=== PATIENT | female | born 1945 | race Two or more races ===

== ENCOUNTER → 2022-05-04 | Outpatient (CLI) | payer OTHER ==
[2022-05-04 10:32] LABS: Basophils # (auto) 0 10 ^3/uL (0-0.2); Basophils % (auto) 0.8 % (0.0-2.0); Eosinophils # (auto) 0.1 10 ^3/uL (0-0.8); Eosinophils % (auto) 2.5 % (0.0-7.0); Hematocrit 40.7 % (36.0-46.0); Lymphocytes # (auto) 1.2 10 ^3/uL (0.4-5.4); Lymphocytes % (auto) 23.3 % (10.0-50.0); Mean Corpuscular Hemoglobin 29.2 pg (28.0-32.0); Mean Corpuscular Hgb Conc. 34.3 g/dL (32.0-36.0); Mean Corpuscular Volume 85.1 fL (80.0-100.0); Monocytes # (auto) 0.4 10 ^3/uL (0-1.3); Monocytes % (auto) 8.6 % (0.0-12.0); Neutrophils # (auto) 3.3 10 ^3/uL (1.6-8.6); Neutrophils % (auto) 64.8 % (37.0-80.0); Nucleated Red Blood Cells % 0.1 %; Red Blood Cells 4.79 10^6/uL (4.0-5.20); Red Cell Distribution Width 13.1 % (11.8-14.3); White Blood Cell 5.2 10^3/uL (4.4-10.8)
[2022-05-04 11:18] LABS: Albumin 3.6 g/dL (3.4-5.0); BUN/Creatinine Ratio 23.4; Calcium 9.3 mg/dL (8.5-10.1); Potassium 4.4 mmol/L (3.5-5.1); Total Protein 6.6 g/dL (6.4-8.2)
[2022-05-04 11:23] LABS: Bilirubin, Total 0.4 mg/dL (0.2-1.0)
== END | disposition home or self-care (01) ==
LOC: LAB 10:08
PROVIDERS: ATTEND Student in an Organized Health Care Education/Training Program
DX: E78.5 Hyperlipidemia, unspecified (principal); E03.8 Other specified hypothyroidism; R03.0 Elevated blood-pressure reading, without diagnosis of hypertension
CPT/HCPCS: 36415; 80053; 80061; 84439; 84443; 85025

== ENCOUNTER → 2023-04-06 | Outpatient (CLI) | payer OTHER ==
[2023-04-06 12:31] LABS: Calcium 9.5 mg/dL (8.5-10.1); Chloride 109 mmol/L (98-107); Sodium 143 mmol/L (136-145)
[2023-04-06 12:32] LABS: Anion Gap 4 (5-15); Carbon Dioxide 30 mmol/L (20-30)
[2023-04-06 12:37] LABS: BUN/Creatinine Ratio 14.9 (10.0-20.0); Blood Urea Nitrogen 17 mg/dL (9-23); Glucose 124 mg/dL (74-106)
== END | disposition home or self-care (01) ==
LOC: LAB 11:43
PROVIDERS: ATTEND Student in an Organized Health Care Education/Training Program
DX: N18.31 Chronic kidney disease, stage 3a (principal)
CPT/HCPCS: 36415; 80048

== ENCOUNTER 2024-02-18 18:55 | Inpatient (IN) | payer OTHER ==
[~2024-02-18] VITALS: Ht 157.5 cm; Wt 71.3 kg
--- NOTE | 2024-02-18 19:52 | DVH ---
CHEST RADIOGRAPH Indication: sob Technique: Single frontal view of the chest was obtained Comparison: None FINDINGS: Lines and Tubes: None Lungs: Clear Pleura: No effusion. No pneumothorax. Cardiomediastinal contours: Unremarkable Bones: Unremarkable IMPRESSION: 1. Clear lungs.
--- NOTE | 2024-02-18 20:11 | ED.PDOC ---
SOB-HPI HPI Comments 78 year old female with a history of MS presents to the ED with chief complaint of SOB. Patient reports that she has been ill with a cough, congestion, and generalized weakness for the past 2 days, however, she has now been experiencing SOB, dizziness, fever, sore throat, and N/V/D. Patient's son relays that she is unable to walk herself to the bathroom when normally she can and she is unable to eat or drink due to her sore throat. Son states there are sick contacts at home with similar symptoms. Patient denies any chest pain, headache, chills, dysuria, hematemesis, or melena. Time Seen by MD: 19:51 Reviewed notes: Nurses Notes, Medications, Allergies Information Source: Patient, Relative (Son) Mode of Arrival: Wheelchair Severity: Moderate Timing: Days Duration: Since onset Context: At Rest PE Risk Factors: None History of: None Prehospital treatment: None Modifying Factors: Nothing Associated Signs and Symptoms: Fever, Cough, Sore Throat If cough with SOB: Non-Productive Past Medical History PAST MEDICAL HISTORY: Thyroid, TIA Past Medical History (Other): MS Surgical History: Denies all surgeries BINGO FLOATER History: Denies all BINGO FLOATER Hx Family History Family History: Reviewed,noncontributory to illness Social History Smoker: Non-Smoker Alcohol: Denies ETOH Use Drugs: Denies Drug Use Lives In: Home Constitutional: reports: fever, weakness; denies: chills, diaphoresis, fatigue, malaise, sweats, others EENTM: reports: nose congestion, throat pain; denies: blurred vision, double vision, ear bleeding, ear discharge, ear drainage, ear pain, ear ringing, eye pain, eye redness, hearing loss, mouth pain, mouth swelling, nasal discharge, nose bleeding, nose pain, photophobia, tearing, throat swelling, voice changes, others Respiratory: reports: cough, shortness of breath; denies: hemoptysis, orthopnea, SOB at rest, SOB with excertion, stridor, wheezing, others Cardiovascular: denies: chest pain, dizzy spells, diaphoresis, Dyspnea on exertion, edema, irregular heart beat, left arm pain, lightheadedness, pal pitations, PND, syncope, others Gastrointestinal: reports: diarrhea, nausea, vomiting; denies: abdomen distended, abdominal pain, blood streaked bowels, constipated, dysphagia, difficulty swallowing, hematemesis, melena, poor appetite, poor fluid intake, rectal bleeding, rectal pain, others Genitourinary: denies: abnormal vagina bleeding, burning, dyspareunia, dysuria, flank pain, frequency, hematuria, incontinence, pain, , vagina discharge, urgency, others Neurological: reports: dizziness; denies: fainting, headache, left sided numbness, left sided weakness, numbness, paresthesia, pre-existing deficit, right sided numbness, right sided weakness, seizure, speech problems, tingling, tremors, weakness, others Musculoskeletal: denies: back pain, gout, joint pain, joint swelling, muscle pain, muscle stiffness, neck pain, others Integumetry: denies: bruises, change in color, change in hair/nails, dryness, laceration, lesions, lumps, rash, wounds, others Allergic/Immunocompromised: denies: Difficulty Healing, Frequent Infections, Hives, Itching, others Hematologic/Lymphatic: denies: anemia, blood clots, easy bleeding, easy bruising, swollen glands, others Endocrine: denies: excessive hunger, excessive sweating, excessive thirst, excessive urination, flushing, intolerance to cold, intolerance to heat, unexplained weight gain, unexplained weight loss, others Psychiatric: denies: anxiety, bipolar disorder, depression, hopeless, panic disorder, schizophrenia, sleepless, suicidal, others All Other Systems: Reviewed and Negative Physical Exam General Appearance: Mild Distress, Other (Ill-appearing) HEENT: Other (Dry mucous membranes, no pharyngeal erythema, edema, exudate or uvular deviation. Pupils symmetric.) Neck: Full Range of Motion, Normal Inspection Respiratory: Lungs Clear, No Accessory Muscle Use, No Respiratory Distress, Normal Breath Sounds Cardiovascular: No Edema, No JVD, Regular Rate/Rhythm Breast Exam: Deferred Gastrointestinal: Non Tender, Soft Genitalia: Deferred Pelvic: Deferred Rectal: Deferred Extremities: Normal inspection, Normal range of motion, Non-tender, No pedal edema Neurologic: Alert (Oriented x4), Normal Affect, Normal Mood, No Sensory Deficits, Other (Moves all extremities. Unable to stand without assistance.) Cerebellar Function: NOT DONE Reflexes: NOT DONE Skin: Dry, Normal Color, Warm Lymphatic: NOT DONE Was a procedure done? Was a procedure done?: No Differential Dx Differential Diagnosis: Asthma, Bronchitis, CHF, COPD, Dysrhythmia, Hyponatremia, Myocardial infarction, Pneumonia, Pulmonary Embolism, Respiratory Distress, URI Comments Electrolyte imbalance, hypovolemia, renal failure, MS exacerbation, among others X-Ray, Labs, Meds, VS Vital Signs Date Time Temp Pulse Resp B/P (MAP) Pulse Ox O2 Delivery O2 Flow Rate FiO2 02/18/24 20:38 102.0 02/18/24 20:06 102.0 133 18 122/41 (68) 94 Lab Test 02/18/24 22:03 02/18/24 21:00 02/18/24 20:53 Range/Units Troponin I High Sensitivity 10 10 </=34 ng/L Influenza Type A Antigen Negative Negative Influenza Type B Antigen Negative Negative SARS-CoV-2 Antigen (Rapid) Negative NEGATIVE White Blood Count 14.1 H 4.4-10.8 10^3/uL Red Blood Count 5.00 4.0-5.20 10^6/uL Hemoglobin 14.5 12.2-16.2 g/dL Hematocrit 43.8 36.0-46.0 % Mean Corpuscular Volume 87.6 80.0-100.0 fL Mean Corpuscular Hemoglobin 29.1 28.0-32.0 pg Mean Corpuscular Hemoglobin Concent 33.2 32.0-36.0 g/dL Red Cell Distribution Width 14.7 H 11.8-14.3 % Platelet Count 221 140-450 10^3/uL Mean Platelet Volume 8.1 6.9-10.8 fL Neutrophils (%) (Auto) 94.8 H 37.0-80.0 % Lymphocytes (%) (Auto) 1.1 L 10.0-50.0 % Monocytes (%) (Auto) 3.6 0.0-12.0 % Eosinophils (%) (Auto) 0.1 0.0-7.0 % Basophils (%) (Auto) 0.4 0.0-2.0 % Neutrophils # (Auto) 13.4 H 1.6-8.6 10 ^3/uL Lymphocytes # (Auto) 0.2 L 0.4-5.4 10 ^3/uL Monocytes # (Auto) 0.5 0-1.3 10 ^3/uL Eosinophils # (Auto) 0 0-0.8 10 ^3/uL Basophils # (Auto) 0.1 0-0.2 10 ^3/uL Nucleated Red Blood Cells 0.1 % Sodium Level 138 136-145 mmol/L Potassium Level 4.7 3.5-5.1 mmol/L Chloride Level 103 98-107 mmol/L Carbon Dioxide Level 25 20-31 mmol/L Anion Gap 10 5-15 Blood Urea Nitrogen 32 H 9-23 mg/dL Creatinine 1.89 H 0.550-1.02 mg/dL Glomerular Filtration Rate Calc 27 >90 mL/min BUN/Creatinine Ratio 16.9 10.0-20.0 Serum Glucose 164 H 74-106 mg/dL Lactic Acid Level 3.0 *H 0.4-2.0 mmol/L Calcium Level 10.4 8.7-10.4 mg/dL B-Type Natriuretic Peptide 44.78 0-100 pg/mL Thyroid Stimulating Hormone (TSH) 1.32 0.55-4.78 uIU/mL Current Medications Medications (Trade) Dose Ordered Sig/Adeel Route Start Time Stop Time Status Last Admin Acetaminophen (Tylenol Tablet) 650 mg ONCE ONCE PO 02/18/24 20:45 02/18/24 20:46 DC 02/18/24 20:38 Chest XR: FINDINGS: Lines and Tubes: None Lungs: Clear Pleura: No effusion. No pneumothorax. Cardiomediastinal contours: Unremarkable Bones: Unremarkable IMPRESSION: 1. Clear lungs. X-Ray, Labs, Meds, VS Comment 78-year-old female with a history of MS, thyroid disease and TIAs complaining of cough, shortness of breath, sore throat, nausea, vomiting and diarrhea, associated with generalized weakness Vitals remarkable for temperature of 102, heart rate 133, BP 122/41, oxygen saturation 94% on room air Exam remarkable for inability to stand without assistance. Patient is generally ill-appearing. Rhythm strip independently interpreted by me: Sinus tach, rate 128, no ectopy. Chest x-ray: Clear lungs CBC remarkable for WBC 14, differential shows left shift. Metabolic panel shows BUN 32, creatinine 1.89. Lactate 3. Patient treated with the following in the ED: 1 L 0.9 normal saline IV bolus, morphine 2 mg IV, Zofran 4 mg IV, Tylenol 650 mg p.o. On re-evaluation, patient no longer febrile, heart rate improving, other vitals stable. Plan is to admit the patient for IV hydration, lactate trend and neurology evaluation. Images Reviewed?: Images reviewed and evaluated by me Time of 1ST Reevaluation: 20:51 Reevaluation 1ST: Unchanged Patient Education/Counseling: Diagnosis, Treatment Family Education/Counseling: No Family Present Departure 1 Departure Time of Disposition: 21:36 Impression: Primary Impression: Exacerbation of multiple sclerosis Additional Impressions: Febrile illness, acute Acute kidney injury Elevated lactic acid level Disposition: ADMITTED INPATIENT Admit to: [facility] Condition: Guarded Critical Care Note Critical Care Time?: No Stability Stability form required: No Heart Score Heart Score: Heart Score Response (Comments) Value History N/A 0 EKG N/A 0 Age N/A 0 Risk Factors N/A 0 Troponin N/A 0 Total 0 I personally scribed for JOSE BAKER MD ([email or web address]) on 02/18/24 at 20:11. Electronically submitted by Yeyo Barlow ([email or web address]). I personally scribed for JOSE BAKER MD ([email or web address]) on 02/18/24 at 20:34. Electronically submitted by Yeyo Barlow ([email or web address]). JOSE BAKER MD Feb 18, 2024 20:11
[2024-02-18] MEDS: ACETAMINOPHEN 325 MG TAB PO ONE (20:38)
[2024-02-18 21:14] LABS: Basophils # (auto) 0.1 10 ^3/uL (0-0.2); Basophils % (auto) 0.4 % (0.0-2.0); Eosinophils # (auto) 0 10 ^3/uL (0-0.8); Eosinophils % (auto) 0.1 % (0.0-7.0); Hematocrit 43.8 % (36.0-46.0); Hemoglobin 14.5 g/dL (12.2-16.2); Lymphocytes # (auto) 0.2 10 ^3/uL (0.4-5.4); Lymphocytes % (auto) 1.1 % (10.0-50.0); Mean Corpuscular Hemoglobin 29.1 pg (28.0-32.0); Mean Corpuscular Hgb Conc. 33.2 g/dL (32.0-36.0); Mean Corpuscular Volume 87.6 fL (80.0-100.0); Monocytes # (auto) 0.5 10 ^3/uL (0-1.3); Monocytes % (auto) 3.6 % (0.0-12.0); Neutrophils # (auto) 13.4 10 ^3/uL (1.6-8.6); Neutrophils % (auto) 94.8 % (37.0-80.0); Nucleated Red Blood Cells % 0.1 %; Platelet Count (auto) 221 10^3/uL (140-450); Red Cell Distribution Width 14.7 % (11.8-14.3); White Blood Cell 14.1 10^3/uL (4.4-10.8)
[2024-02-18 21:39] LABS: Chloride 103 mmol/L (98-107); Potassium 4.7 mmol/L (3.5-5.1); Sodium 138 mmol/L (136-145)
[2024-02-18 21:40] LABS: Anion Gap 10 (5-15); Calcium 10.4 mg/dL (8.7-10.4); Carbon Dioxide 25 mmol/L (20-31)
[2024-02-18 21:45] LABS: BUN/Creatinine Ratio 16.9 (10.0-20.0)
[2024-02-18] MEDS ORDERED: ONDANSETRON HCL 4 MG/2 ML VIAL IV PRN (21:45)
[2024-02-18] MEDS ORDERED: DOCUSATE SOD 100 MG CAP PO PRN (21:45)
[2024-02-18] MEDS ORDERED: IPRATROPIUM BROM 0.5 MG/2.5ML INH SOL NEB PRN (21:45)
[2024-02-18] MEDS ORDERED: ALBUTEROL SULF 2.5 MG/0.5ML(0.5%) NEB SOLN NEB PRN (21:45)
[2024-02-18] MEDS ORDERED: IBUPROFEN 600 MG TAB PO PRN (21:45)
[2024-02-18 21:47] LABS: Blood Urea Nitrogen 32 mg/dL (9-23); Glucose 164 mg/dL (74-106)
[2024-02-18 22:04] LABS: COVID19 ANTIGEN SOFIA FIA NEGATIVE (NEGATIVE)
[2024-02-18 22:05] LABS: Rapid Influenza A Negative (Negative); Rapid Influenza B Negative (Negative)
[2024-02-18] MEDS ORDERED: MORPHINE SULFATE INJ 2 MG/ml SYRG IV PRN (22:15)
[2024-02-18] MEDS ORDERED: NITROGLYCERIN 0.4 MG SL TAB SL PRN (22:15)
--- NOTE | 2024-02-18 22:22 | DVHHP2 ---
History of Present Illness Reason for Visit: Exacerbation of multiple sclerosis History of Present Illness Patient is a 78-year-old female with past medical history of prediabetes, thyroid disease, TIA, and multiple sclerosis who presented to [facility] ED with complaint of shortness of breaths. Patient reports symptoms progressively get worse with cough, congestion, generalized weakness, dizziness fever, sore throat nausea, getting worse today that prompted this visit. Patient was seen and evaluated in the ED, laboratory data shows WBC 14.1, platelets 221, sodium 138, potassium 4.7, BUN 32, creatinine 1.89, GFR 27, glucose 164 lactic acid 3.0, BNP 44.78, blood pressure 122/41, rate 133 trending down to 110, temperature 102.0 F, O2 saturation 94% oxygen. Patient was started on IV antibiotic regimen vancomycin per dose, please see medication section in the computer. My assessment family member at bedside, patient denied chest pain, no headache, no dizziness, no diaphoresis, no abdominal pain, no diarrhea, nausea or vomiting at this moment, no chills. Patient was admitted for further evaluation and medical management. Past Medical History Thyroid, TIA, multiple sclerosis, prediabetes. Past Surgical History Denies all surgeries Family History Reviewed, noncontributory to the management of this case. Past Social History The patient lives at home, denies smoking, alcohol or illicit drugs abuse. Review of Systems Constitutional: Yes: Fever, Weakness; No: Chills, Sweats, Malaise, Other Eyes: No: Pain, Vision change, Conjunctivae inflammation, Eyelid inflammation, Other, Redness ENT: Nose congestion; No: Ear pain, Ear discharge, Nose pain, Nose discharge, Mouth pain, Mouth swelling, Throat pain, Throat swelling, Other Respiratory: Cough, Shortness of breath; No: Dry, SOB with excertion, Wheezing, Hemoptysis, Pleuritic Pain, Sputum, Wheezing, Other Cardiovascular: No: Chest Pain, Palpitations, Orthopnea, Paroxysmal Noc. Dyspnea, Edema, Lt Headedness, Other Gastrointestinal: No: Nausea, Vomiting, Abdominal Pain, Diarrhea, Constipation, Melena, Hematochezia, Other Genitourinary: No Dysuria, No Frequency, No Incontinence, No Hematuria, No Retention, No Other Musculoskeletal: No: other, neck pain, shoulder pain, arm pain, back pain, hand pain, leg pain, foot pain Skin: No: Rash, Lesions, Jaundice, Bruising, Other Neurological: Other (Dizziness); No: Weakness, Numbness, Incoordination, Change in speech, Confusion, Seizures Allergies: Coded Allergies: NO KNOWN ALLERGIES (Unverified , 02/18/24) Medications Current Medications Medications Dose Ordered Sig/Adeel Route Start Time Stop Time Status Last Admin Dose Admin Albuterol 2.5 mg Q4HPRN PRN NEB 02/18/24 21:45 Ipratropium [place] 0.5 mg Q4HPRN PRN NEB 02/18/24 21:45 Levothyroxine Sodium 50 mcg QAM@0600 PO 02/19/24 06:00 Ibuprofen 400 mg Q6HP PRN PO 02/18/24 21:45 Sodium Chloride 1,000 ml @ 60 mls/hr [id number] IV 02/18/24 21:45 Acetaminophen/ Hydrocodone Bitart 1 tab Q4HP PRN PO 02/18/24 21:45 Ondansetron HCl 4 mg Q4HP PRN IV 02/18/24 21:45 Docusate Sodium 100 mg BIDPRN PRN PO 02/18/24 21:45 Morphine Sulfate 2 mg Q4HPRN PRN IV 02/18/24 21:45 Exam Vital Signs Vital Signs Date Time Temp Pulse Resp B/P (MAP) Pulse Ox O2 Delivery O2 Flow Rate FiO2 02/18/24 20:38 102.0 02/18/24 20:06 133 18 122/41 (68) 94 General Appearance: Alert, Oriented X3, Cooperative, No acute distress HEENT: Atraumatic, PERRLA, EOMI, Mucous membr. moist/pink Respiratory: Clear to auscultation, Normal air movement Cardiovascular: Regular rate, Normal S1, Normal S2, No murmurs Abdominal: Normal bowel sounds, Soft, No tenderness, No hepatospenomegaly, No masses Extremities: No clubbing, No cyanosis, No edema, Normal pulses, No tenderness/swelling Skin: No breakdown, No significant lesion Neuro: Normal speech, Normal tone, Sensation intact, Cranial nerves 3-12 NL, Reflexes 2+, Other (Generalized weakness) Psych/Mental Status: Mental status NL, Mood NL Labs/Xrays Labs Test 02/18/24 21:00 02/18/24 20:53 Range/Units Influenza Type A Antigen Negative Negative Influenza Type B Antigen Negative Negative SARS-CoV-2 Antigen (Rapid) Negative NEGATIVE White Blood Count 14.1 H 4.4-10.8 10^3/uL Red Blood Count 5.00 4.0-5.20 10^6/uL Hemoglobin 14.5 12.2-16.2 g/dL Hematocrit 43.8 36.0-46.0 % Mean Corpuscular Volume 87.6 80.0-100.0 fL Mean Corpuscular Hemoglobin 29.1 28.0-32.0 pg Mean Corpuscular Hemoglobin Concent 33.2 32.0-36.0 g/dL Red Cell Distribution Width 14.7 H 11.8-14.3 % Platelet Count 221 140-450 10^3/uL Mean Platelet Volume 8.1 6.9-10.8 fL Neutrophils (%) (Auto) 94.8 H 37.0-80.0 % Lymphocytes (%) (Auto) 1.1 L 10.0-50.0 % Monocytes (%) (Auto) 3.6 0.0-12.0 % Eosinophils (%) (Auto) 0.1 0.0-7.0 % Basophils (%) (Auto) 0.4 0.0-2.0 % Neutrophils # (Auto) 13.4 H 1.6-8.6 10 ^3/uL Lymphocytes # (Auto) 0.2 L 0.4-5.4 10 ^3/uL Monocytes # (Auto) 0.5 0-1.3 10 ^3/uL Eosinophils # (Auto) 0 0-0.8 10 ^3/uL Basophils # (Auto) 0.1 0-0.2 10 ^3/uL Nucleated Red Blood Cells 0.1 % Sodium Level 138 136-145 mmol/L Potassium Level 4.7 3.5-5.1 mmol/L Chloride Level 103 98-107 mmol/L Carbon Dioxide Level 25 20-31 mmol/L Anion Gap 10 5-15 Blood Urea Nitrogen 32 H 9-23 mg/dL Creatinine 1.89 H 0.550-1.02 mg/dL Glomerular Filtration Rate Calc 27 >90 mL/min BUN/Creatinine Ratio 16.9 10.0-20.0 Serum Glucose 164 H 74-106 mg/dL Lactic Acid Level 3.0 *H 0.4-2.0 mmol/L Calcium Level 10.4 8.7-10.4 mg/dL Troponin I High Sensitivity 10 </=34 ng/L B-Type Natriuretic Peptide 44.78 0-100 pg/mL PATIENT: MADONNA WARNER ACCT: [id number] UNIT: [id number] : 1945 LOC: ER ROOM / BED: / AGE / SEX: 78 / F ADM STATUS: REG ER SERVICE 10 ORDERING PHYSICIAN: JOSE BAKER MD PROCEDURE(s): CXRP - CHEST PORTABLE REASON: sob ORDER NUMBER(s): [id number], ACCESSION NUMBER(s): [id number] CHEST RADIOGRAPH Indication: sob Technique: Single frontal view of the chest was obtained Comparison: None FINDINGS: Lines and Tubes: None Lungs: Clear Pleura: No effusion. No pneumothorax. Cardiomediastinal contours: Unremarkable Bones: Unremarkable IMPRESSION: 1. Clear lungs. Assessment/Plan Assessment/Plan Exacerbation of multiple sclerosis Sepsis, unspecified organisms Acute on chronic renal failure Acute respiratory distress Plan 1. Admit to telemetry unit 2. Breathing treatment 3. Pain control management 4. IV antibiotic management 5. Management of fluids and electrolytes 6. Consultation for hospitalist 7. Diagnostic test chest x-ray 8. DVT prophylaxis-on SCDs 9. Repeat labs CBC, CMP in a.m. 10. Home medication reviewed and reconciled 11. Continue with current medical management 12. Treatment plan discussed with patient and RN. Patient verbalized understanding. Plan discussed with: Patient, Other (RN) My Orders Orders - BARRY WISDOM DNP Procedure Category Date Status Time Albuterol Medneb PHA 02/18/24 In Process (Ventolin Medneb) 21:45 Ipratropium Medneb PHA 02/18/24 In Process (Atrovent Medneb) 21:45 Levothyroxine Tablet PHA 02/19/24 In Process (Synthroid Tablet) 06:00 Ibuprofen Tablet PHA 02/18/24 In Process (Motrin Tablet) 21:45 Allergies CAROLYN 02/18/24 In Process 21:45 Code Status CODE 02/18/24 Transmitted 21:45 Sodium Chloride 0.9% PHA 02/18/24 In Process 21:45 Oxygen Per Hour RT 02/18/24 Transmitted 21:45 Hydrocodone-Acet PHA 02/18/24 In Process 5/325mg Tab ([place] 21:45 Ondansetron Hcl PHA 02/18/24 In Process (Zofran) 21:45 Docusate Sodium PHA 02/18/24 In Process Capsule (Colace 21:45 Complete Blood Count LAB 02/19/24 Verified 04:00 Comprehensive LAB 02/19/24 Verified Metabolic Panel 04:00 Cardiac DIET 02/19/24 Transmitted Diet-2gna,Lofat,Lochol Breakfast Condition: Serious CAROLYN 02/18/24 In Process 21:45 Bedrest With Bathroom CAROLYN 02/18/24 In Process Privileg 21:45 Morphine Sulfate PHA 02/18/24 In Process Injection 21:45 Sequential CAROLYN 02/18/24 In Process Compression Device Thyroid Stimulating LAB 02/18/24 In Process Hormone 21:49 Problem List: (1) Exacerbation of multiple sclerosis (2) Acute respiratory distress (3) Acute on chronic renal failure (4) Sepsis, unspecified organism Date of Service: Feb 18, 2024 Billing Provider: BARRY WISDOM DNP Common Visit Codes: [id number] INP/OBS CARE (HIGH) BARRY WISDOM DNP Feb 18, 2024 22:22
[2024-02-18 22:30] VITALS: BP 122/41; PULSE 132; RESP 18; TEMP 102; O2SAT 94
[2024-02-18] MEDS ORDERED: DEXTROSE (50%) 50ML SYRG IV PRN (22:30)
[2024-02-18] MEDS ORDERED: VANCOMYCIN PER PHARMACY 0 MG IV SCH (23:00)
[2024-02-19] VITALS (11 sets, daily range): BP systolic 88–123; BP diastolic 37–83; PULSE 46–133; RESP 16–21; TEMP 97.6–99.5; O2SAT 89–98
[2024-02-19 05:45] LABS: Hematocrit 39.7 % (36.0-46.0); Hemoglobin 13.3 g/dL (12.2-16.2); Mean Corpuscular Hemoglobin 29.2 pg (28.0-32.0); Mean Corpuscular Hgb Conc. 33.5 g/dL (32.0-36.0); Mean Corpuscular Volume 86.9 fL (80.0-100.0); Platelet Count (auto) 218 10^3/uL (140-450); Red Blood Cells 4.57 10^6/uL (4.0-5.20); Red Cell Distribution Width 14.2 % (11.8-14.3); White Blood Cell 17.3 10^3/uL (4.4-10.8)
[2024-02-19 06:07] LABS: Basophils % (manual) 0 (0.0-2.0); Blast Cells 0; Eosinophils % (manual) 0 (0-7); Metamyelocytes % 0; Myelocytes % 0; Promyelocytes % 0; Reactive Lymphocytes 0
[2024-02-19 06:11] LABS: Alanine Aminotransferase 22 U/L (7-40); Albumin 4.2 g/dL (3.2-4.8); Alkaline Phosphatase 101 U/L (46-116); Anion Gap 12 (5-15); BUN/Creatinine Ratio 17.5 (10.0-20.0); Carbon Dioxide 24 mmol/L (20-31); Chloride 102 mmol/L (98-107); Sodium 138 mmol/L (136-145)
[2024-02-19 06:12] LABS: Bilirubin, Total 0.8 mg/dL (0.2-1.0); Total Protein 7.1 g/dL (5.7-8.2)
[2024-02-19 06:16] LABS: Aspartate Aminotransferase 10 U/L (13-40); Blood Urea Nitrogen 42 mg/dL (9-23); Glucose 174 mg/dL (74-106)
[2024-02-19] MEDS: LEVOTHYROXINE SODIUM 50 MCG TAB PO SCH (06:23)
[2024-02-19] MEDS: ACCU-CHEK COMFORT CURVE STRIP VI SCH (06:36)
[2024-02-19] MEDS: InsuLIN REG 1unit/0.01ml Soln (100units/ml) SC SCH (06:40)
[2024-02-19 08:53] LABS: Band Neutrophils % (manual) 7; Lymphocytes % (manual) 3 (10.0-50.0); Monocytes % (manual) 1 (0-12); Platelet Estimate Adequate
[2024-02-19] MEDS: SODIUM CHLORIDE 0.9% 1,000 ML IV ONE ×2 (12:34→17:00)
[2024-02-19] MEDS: SODIUM CHLORIDE 0.9% 1,000 ML IV SCH ×2 (12:52→15:02)
--- NOTE | 2024-02-19 14:12 | DVH ---
INDICATION: CKD TECHNIQUE: Multiple real-time sonographic images of the kidneys and bladder were obtained. COMPARISON: None FINDINGS: The right kidney measures 8 cm in length, which is normal in size. There is normal echogenicity of th e right kidney. No hydronephrosis. The left kidney measures 9 cm in length, which is normal in size. There is normal echogenicity of the left kidney. No hydronephrosis. No large intraluminal masses are seen in the bladder. Prior to voiding the bladder volume measures volume 153 cc. IMPRESSION: 1. Normal sonographic appearance of the kidneys. No hydronephrosis.
[2024-02-19] MEDS: cefTRIAXone 1GM/50ML D5W 50 ML IV ONE (14:56)
[2024-02-19] MEDS: SODIUM CHLORIDE 0.9% 500 ML IV ONE ×2 (14:56→17:00)
[2024-02-19] MEDS: MORPHINE SULFATE INJ 2 MG/ml SYRG IV ONE (14:56)
[2024-02-19] MEDS: ONDANSETRON HCL 4 MG/2 ML VIAL IV ONE (14:56)
[2024-02-19] MEDS: VANCOMYCIN 1.25gm/250mL PREMIX or KIT IV ONE (14:56)
[2024-02-19] MEDS: HYDROcodone-ACET 5/325MG TAB PO PRN (15:30)
--- NOTE | 2024-02-19 17:20 | DVHCONRES ---
Date Seen: Feb 19, 2024 Resident Creating Document: AUBREY LLOYD RESIDENT Referring Physician Melanie CAMPOS Reason for Consultation Acute on chronic renal failure History of Present Illness Patient is 78-year-old female with past medical history of multiple sclerosis, hypothyroidism who presented to hospital with a chief complaint of progressive generalized weakness mainly in lower extremity, sore throat which prompted this visit. As per patient most of the family members sick with sore throat and she is feeling the same way and she is not feeling better. As per patient she has been diagnosed with chronic kidney disease as well but not away from exit diagnosis. Patient has been remission on medication for multiple sclerosis, taking levothyroxine at home. Denying any other diagnosis or taking medication for it. Nephrology consultation has been done for acute on chronic renal failure. No any further events during recent hospitalization. Patient denying any other symptoms including fever, chills, shortness of breath, any other symptoms. Past Medical History Multiple sclerosis, levothyroxine Past Surgical History As per HPI Allergies: Coded Allergies: NO KNOWN ALLERGIES (Unverified , 02/18/24) Current Medications Current Medications Medications (Trade) Dose Ordered Sig/Adeel Route PRN Reason Start Time Stop Time Status Last Admin Albuterol (Ventolin Medneb) 2.5 mg Q4HPRN PRN NEB SHORTNESS OF BREATH 02/18/24 21:45 Ipratropium [place] (Atrovent Medneb) 0.5 mg Q4HPRN PRN NEB SHORTNESS OF BREATH 02/18/24 21:45 02/19/24 13:33 DC Levothyroxine Sodium (Synthroid Tablet) 50 mcg QAM@0600 PO 02/19/24 06:00 02/19/24 06:23 Ibuprofen (Motrin Tablet) 400 mg Q6HP PRN PO PAIN SCALE 1-3 OR TEMP>100.4 02/18/24 21:45 02/19/24 13:33 DC Sodium Chloride 1,000 ml @ 60 mls/hr [id number] IV 02/18/24 21:45 02/19/24 13:33 DC 02/19/24 12:53 Acetaminophen/ Hydrocodone Bitart ([place] 5/325MG Tab) 1 tab Q4HP PRN PO MODERATE PAIN (4-6 PAIN SCALE) 02/18/24 21:45 02/19/24 15:30 Ondansetron HCl (Zofran) 4 mg Q4HP PRN IV NAUSEA / VOMITING 02/18/24 21:45 Docusate Sodium (Colace Capsule) 100 mg BIDPRN PRN PO FOR CONSTIPATION 02/18/24 21:45 Morphine Sulfate 2 mg Q4HPRN PRN IV SEVERE PAIN (7-10 PAIN SCALE) 02/18/24 21:45 Ceftriaxone Sodium 50 ml @ 100 mls/hr DAILY@2200 IV 02/19/24 22:00 Nitroglycerin (Ntrostat Sublingual) 0.4 mg Q5MINP PRN SL FOR CHEST PAIN 02/18/24 22:15 Morphine Sulfate 2 mg Q30M PRN IV FOR CHEST PAIN 02/18/24 22:15 Diagnostic Test (Pha) (Accu-Chek Comfort Curve T) 1 strip ACHS 02/19/24 07:00 02/19/24 12:35 Insulin Human Regular (InsuLIN R) ACHS SC 02/19/24 07:00 02/19/24 06:40 Dextrose 50 ml UD PRN IV Blood Sugar LESS THAN 60 02/18/24 22:30 Vancomycin HCl 0 ml @ 0 mls/hr UD IV 02/18/24 23:00 Sodium Chloride 1,000 ml @ 100 mls/hr Q10H IV 02/19/24 13:45 02/19/24 15:02 Albuterol (Ventolin Medneb) 2.5 mg Q4HPRN PRN NEB SHORTNESS OF BREATH 02/19/24 16:00 Review of Systems Patient complaining of generalized weakness, lower extremity weakness and sore throat. Denying any other symptoms including fever, chills, chest pain, shortness of breath, any other symptoms. Vital Signs Vital Signs Date Time Temp Pulse Resp B/P (MAP) Pulse Ox O2 Delivery O2 Flow Rate FiO2 02/19/24 16:50 95 Nasal Cannula 2.0 02/19/24 16:50 28 02/19/24 13:00 127 21 123/47 (72) 02/19/24 07:59 98.3 98.3 Physical Exam General Appearance: Cooperative. Well developed. Well nourished. NAD Head Exam: Normal inspection Neck Exam: Normal inspection. Non-tender. Normal alignment Pulmonary/Respiratory: Chest non-tender. Clear bilateral breath sounds Cardiovascular/Chest: Regular rate and rhythm. No murmurs. No JVD. Peripheral Pulses: 2+ Radial (R). 2+ Radial (L). 2+ Pedal (R). 2+ Pedal (L) Abdominal Exam: Normal bowel sounds. Soft. Nontender. No hepatospenomegaly. No masses Ankle Exam: Negative ankle edema Lower extremities: Negative lower extremity edema Neuro/Mental Status: A&O x4. Coherent, 2+ muscle strength of lower extremity, 5+ motor strength, intake sensory. Thoughts/Psych: Normal thought pattern. Appropriate mood and affect. Good judgement and insight, Appearance: In no acute distress Skin Exam: Normal inspection. Normal color. Warm. Dry Labs/Diagnostic Data Labs Test 02/19/24 06:35 02/19/24 05:06 02/19/24 03:22 02/19/24 00:10 Range/Units POC Glucose 171 H 70-106 mg/dl White Blood Count 17.3 H 4.4-10.8 10^3/uL Red Blood Count 4.57 4.0-5.20 10^6/uL Hemoglobin 13.3 12.2-16.2 g/dL Hematocrit 39.7 36.0-46.0 % Mean Corpuscular Volume 86.9 80.0-100.0 fL Mean Corpuscular Hemoglobin 29.2 28.0-32.0 pg Mean Corpuscular Hemoglobin Concent 33.5 32.0-36.0 g/dL Red Cell Distribution Width 14.2 11.8-14.3 % Platelet Count 218 140-450 10^3/uL Mean Platelet Volume 8.4 6.9-10.8 fL Neutrophils (%) (Auto) 37.0-80.0 % Lymphocytes (%) (Auto) 10.0-50.0 % Monocytes (%) (Auto) 0.0-12.0 % Basophils (%) (Auto) 0.0-2.0 % Neutrophils # (Auto) 1.6-8.6 10 ^3/uL Lymphocytes # (Auto) 0.4-5.4 10 ^3/uL Monocytes # (Auto) 0-1.3 10 ^3/uL Differential Total Cells Counted 100.0 100 Neutrophils % (Manual) 89 H 37.0-80.0 Band Neutrophils % (Manual) 7 Lymphocytes % (Manual) 3 L 10.0-50.0 Monocytes % (Manual) 1 0-12 Eosinophils % (Manual) 0 0-7 Basophils % (Manual) 0 0.0-2.0 Metamyelocytes % (manual) 0 Myelocytes % (Manual) 0 Promyelocytes % (Manual) 0 Blast Cells % (Manual) 0 Reactive Lymphocytes 0 Platelet Estimate Adequate Sodium Level 138 136-145 mmol/L Potassium Level 4.0 3.5-5.1 mmol/L Chloride Level 102 98-107 mmol/L Carbon Dioxide Level 24 20-31 mmol/L Anion Gap 12 5-15 Blood Urea Nitrogen 42 #H 9-23 mg/dL Creatinine 2.40 H 0.550-1.02 mg/dL Glomerular Filtration Rate Calc 20 >90 mL/min BUN/Creatinine Ratio 17.5 10.0-20.0 Serum Glucose 174 H 74-106 mg/dL Calcium Level 10.0 8.7-10.4 mg/dL Total Bilirubin 0.8 0.2-1.0 mg/dL Aspartate Amino Transferase (AST) 10 L 13-40 U/L Alanine Aminotransferase (ALT) 22 7-40 U/L Alkaline Phosphatase 101 46-116 U/L Total Protein 7.1 5.7-8.2 g/dL Albumin 4.2 3.2-4.8 g/dL Lactic Acid Level 3.2 *H 0.4-2.0 mmol/L Troponin I High Sensitivity 11 </=34 ng/L Test 02/18/24 21:00 02/18/24 20:53 Range/Units Influenza Type A Antigen Negative Negative Influenza Type B Antigen Negative Negative SARS-CoV-2 Antigen (Rapid) Negative NEGATIVE Eosinophils (%) (Auto) 0.1 0.0-7.0 % Eosinophils # (Auto) 0 0-0.8 10 ^3/uL Basophils # (Auto) 0.1 0-0.2 10 ^3/uL Nucleated Red Blood Cells 0.1 % B-Type Natriuretic Peptide 44.78 0-100 pg/mL Thyroid Stimulating Hormone (TSH) 1.32 0.55-4.78 uIU/mL Assessment MARIANA on CKD stage IV, likely hemodynamically mediated prerenal versus ischemic ATN Sepsis unknown source of infection Multiple sclerosis Lactic acidosis History of hypothyroidism Plan/recommendation -continue IV fluid normal saline 100 mL/hour -continue to monitor kidney function, strict I&O -bladder scan showed 100 mL residual urine. -renal ultrasound on 02/19/2024 showed normal sonographic appearance of kidney, no hydronephrosis -ordered UA, urine electrolytes including urine sodium, creatinine, protein/creatinine ratio. -avoid nephrotoxic drugs -we will closely follow-up . Addendum Patient seen and examined, plan discussed with resident. Agree with above, we will follow closely Plan discussed with: Patient, Other (RN) AUBREY LLOYD Feb 19, 2024 17:20 KWAKU CASTELLON MD Feb 19, 2024 20:36
--- NOTE | 2024-02-19 18:27 | DVHPN2 ---
Subjective in bed very lethargic Changes from previous H/P or p: No Changes Eyes: No Pain, No Vision change, No Conjunctivae inflammation, No Eyelid inflammation, No Other, No Redness ENT: No Ear pain, No Ear discharge, No Nose pain, No Nose discharge; Nose congestion; No Mouth pain, No Mouth swelling, No Throat pain, No Throat swelling, No Other Cardiovascular: No Chest Pain, No Palpitations, No Orthopnea, No Paroxysmal Noc. Dyspnea, No Edema, No Lt Headedness, No Other Respiratory: Cough; No Dry; Shortness of breath; No SOB with excertion, No Wheezing, No Hemoptysis, No Pleuritic Pain, No Sputum, No Other Gastrointestinal: No Nausea, No Vomiting, No Abdominal Pain, No Diarrhea, No Constipation, No Melena, No Hematochezia, No Other Genitourinary: No Dysuria, No Frequency, No Incontinence, No Hematuria, No Retention, No Other Musculoskeletal: No other, No neck pain, No shoulder pain, No arm pain, No back pain, No hand pain, No leg pain, No foot pain Skin: No Rash, No Lesions, No Jaundice, No Bruising, No Other Objective Vitals Vital Signs Date Time Temp Pulse Resp B/P (MAP) Pulse Ox O2 Delivery O2 Flow Rate FiO2 02/19/24 16:50 95 Nasal Cannula 2.0 02/19/24 16:50 28 02/19/24 13:00 127 21 123/47 (72) 02/19/24 10:35 98.6 98.6 General Appearance: Other (lethargic, and unable to have conversation) Cardiovascular: Regular rate Abdomen: Normal bowel sounds Neuro: Other (moving extremities) Medications Current Medications Medications Dose Ordered Sig/Adeel Route Start Time Stop Time Status Last Admin Dose Admin Levothyroxine Sodium 50 mcg QAM@0600 PO 02/19/24 06:00 02/19/24 06:23 50 MCG Acetaminophen/ Hydrocodone Bitart 1 tab Q4HP PRN PO 02/18/24 21:45 02/19/24 15:30 1 TAB Ondansetron HCl 4 mg Q4HP PRN IV 02/18/24 21:45 Docusate Sodium 100 mg BIDPRN PRN PO 02/18/24 21:45 Morphine Sulfate 2 mg Q4HPRN PRN IV 02/18/24 21:45 Ceftriaxone Sodium 50 ml @ 100 mls/hr DAILY@2200 IV 02/19/24 22:00 Nitroglycerin 0.4 mg Q5MINP PRN SL 02/18/24 22:15 Morphine Sulfate 2 mg Q30M PRN IV 02/18/24 22:15 Diagnostic Test (Pha) 1 strip ACHS 02/19/24 07:00 02/19/24 18:05 1 STRIP Insulin Human Regular ACHS SC 02/19/24 07:00 02/19/24 06:40 3 UNITS Dextrose 50 ml UD PRN IV 02/18/24 22:30 Vancomycin HCl 0 ml @ 0 mls/hr UD IV 02/18/24 23:00 Sodium Chloride 1,000 ml @ 100 mls/hr Q10H IV 02/19/24 13:45 02/19/24 15:02 100 MLS/HR Albuterol 2.5 mg Q4HPRN PRN NEB 02/19/24 16:00 Laboratory Results Laboratory Tests 02/19/24 05:06 Chemistry Test 02/18/24 20:53 02/19/24 05:06 Calcium Level 10.4 mg/dL (8.7-10.4) 10.0 mg/dL (8.7-10.4) Albumin 4.2 g/dL (3.2-4.8) Total Protein 7.1 g/dL (5.7-8.2) Cardiac Markers Test 02/18/24 20:53 B-Type Natriuretic Peptide 44.78 pg/mL (0-100) LFT Test 02/19/24 05:06 Alanine Aminotransferase (ALT) 22 U/L (7-40) Alkaline Phosphatase 101 U/L (46-116) Aspartate Amino Transferase (AST) 10 U/L (13-40) L Total Bilirubin 0.8 mg/dL (0.2-1.0) HgA1c, TSH Test 02/18/24 20:53 Thyroid Stimulating Hormone (TSH) 1.32 uIU/mL (0.55-4.78) Assessment/Plan Assessment/Plan #acute kidney injury due to acute tubular necrosis no baseline to compare #acute metabolic encephalopathy due to electrolyte abnormalities and uremia #MS history #Sepsis present on admision, tachycardic, elevated WBC, source possible UTI IV abx with ceftriaxone and vanco IVF due to MARIANA Creat worsening today to 2.7 nephrology consult urine and blood cx pending Plan discussed with: Other (nurse) My Orders Orders - SUE SINGLETARY MD Procedure Category Date Status Time Albuterol Medneb PHA 02/19/24 In Process (Ventolin Medneb) 16:00 * Swallow Request ST 02/19/24 Transmitted 15:47 Date of Service: Feb 19, 2024 Billing Provider: SUE SINGLETARY MD Common Visit Codes: [id number] INP/OBS CARE(HIGH) SUE SINGLETARY MD Feb 19, 2024 18:27
[2024-02-19 20:25] LABS: Lactic Acid w/Reflex 3.3 mmol/L (0.4-2.0)
[2024-02-19] MEDS: cefTRIAXone 1GM/50ML D5W 50 ML IV SCH (21:05)
[2024-02-19 21:30] LABS: Creatinine, Urine 154.4 mg/dL (30.0-125.0); Creatinine, Urine 155.61 mg/dL (30.0-125.0)
[2024-02-19 21:31] LABS: Urine Bacteria FEW /hpf (None Seen); Urine Blood 2+ /uL (Negative); Urine Budding Yeast FEW /hpf (None Seen); Urine Clarity Ex.Turbid (Clear); Urine Color Light-Orange (Yellow); Urine Protein, UAD 2+ (Negative); Urine Specific Gravity 1.021 (1.001-1.035); Urine Urobilinogen Normal (Negative); Urine WBC 6 /hpf (0 - 5); Urine pH 5.5 (5.0-9.0)
[2024-02-19 21:34] LABS: Urine Protein/Creatinine Ratio 1.63
[2024-02-19 21:41] LABS: Protein, Urine 252.9 mg/dL (1-14)
[2024-02-20] VITALS (14 sets, daily range): BP systolic 90–163; BP diastolic 32–69; PULSE 44–126; RESP 16–19; TEMP 97.5–99.4; O2SAT 93–100
[2024-02-20] MEDS: VANCOMYCIN 1.25GM/250ML 250 ML IV ONE (00:18)
--- NOTE | 2024-02-20 06:55 | DVH ---
CHEST RADIOGRAPH Indication: Rule out pneumonia Technique: Single frontal view of the chest was obtained Comparison: XY CHEST PORTABLE on DOS: 02/18/24 FINDINGS: Lines and Tubes: None Lungs: No focal consolidation. Pleura: No effusion. No pneumothorax. Cardiomediastinal contours: Unremarkable Bones: No acute osseous abnormality. IMPRESSION: No acute cardiopulmonary disease.
[2024-02-20] MEDS: diphenhdrAMINE HCL 50 MG/1 ML VL IM ONE ×2 (08:57→10:09)
[2024-02-20] MEDS: methylPREDNISolone SOD SUCC 40 MG/ML VL IV ONE (08:57)
[2024-02-20] MEDS: ALBUTEROL SULF 2.5 MG/0.5ML(0.5%) NEB SOLN NEB PRN (09:34)
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
[2024-02-20] MEDS: MORPHINE SULFATE INJ 2 MG/ml SYRG IV PRN (10:23)
[2024-02-20 11:36] LABS: Hematocrit 35.7 % (36.0-46.0); Hemoglobin 11.5 g/dL (12.2-16.2); Mean Corpuscular Hemoglobin 28.2 pg (28.0-32.0); Mean Corpuscular Hgb Conc. 32.2 g/dL (32.0-36.0); Mean Corpuscular Volume 87.5 fL (80.0-100.0); Platelet Count (auto) 199 10^3/uL (140-450); Red Blood Cells 4.09 10^6/uL (4.0-5.20); Red Cell Distribution Width 14.6 % (11.8-14.3); White Blood Cell 18.3 10^3/uL (4.4-10.8)
[2024-02-20 11:41] LABS: Basophils % (manual) 0 (0.0-2.0); Blast Cells 0; Eosinophils % (manual) 0 (0-7); Metamyelocytes % 0; Myelocytes % 0; Promyelocytes % 0; Reactive Lymphocytes 0
[2024-02-20 11:48] LABS: Alanine Aminotransferase 20 U/L (7-40); Alkaline Phosphatase 86 U/L (46-116); Anion Gap 10 (5-15); Aspartate Aminotransferase 22 U/L (13-40); BUN/Creatinine Ratio 23.4 (10.0-20.0); Calcium 8.8 mg/dL (8.7-10.4); Carbon Dioxide 20 mmol/L (20-31); Magnesium 1.9 mg/dL (1.6-2.6); Sodium 139 mmol/L (136-145)
[2024-02-20 11:49] LABS: Bilirubin, Total 0.4 mg/dL (0.2-1.0)
[2024-02-20 11:52] LABS: Albumin 3.1 g/dL (3.2-4.8); Blood Urea Nitrogen 60 mg/dL (9-23); Chloride 109 mmol/L (98-107); Glucose 140 mg/dL (74-106); Total Protein 5.5 g/dL (5.7-8.2)
--- NOTE | 2024-02-20 12:08 | DVHINCON2 ---
GI Consult Consult Note GI consult note Date of Consultation: 02/20/2024 Chief Complaint: Pancreatic mass Referring Physician: Dr. Mcdonald H&P: 78-year-old female presented with chief complaint of SOB, cough and congestion and sore throat Patient complains of headache and back pain Patient also complaining of abdominal pain mostly in the left upper quadrant radiating to the epigastric area No nausea or vomiting. Patient also having some difficulty swallowing because of the sore throat Last BM today, no melena or red blood in stool No EGD or colonoscopy in past. No weight loss Pancreatic mass diagnosed by MRI T-spine 04/09/2023. Patient has had no further workup after this Past Medical History: Thyroid, TIA MS Past Surgical History: Denies Social History: NO smoking, drinking ETOH and use of illegal drugs. Family History: Noncontributory Review of Systems: Constitutional: no fever, chill, weight loss HEENT: no eye pain, no hearing loss, no oral lesion, no scleral icterus Heart: no chest pain, no chest pressure Lung: no cough, no dyspnea with exertion Abdomen: see HPI Physical exam: General: NAD, AAOX3 Chest: lung burns clear to auscultation Heart: RRR, no murmur Abdomen: non-distended, moderate tenderness upper abdomen to palpation, +BS Labs:Labs Test 02/20/24 06:27 02/20/24 05:42 02/19/24 19:41 02/19/24 18:46 Range/Units Creatinine 2.60 H 0.550-1.02 mg/dL Glomerular Filtration Rate Calc 19 >90 mL/min POC Glucose 139 H 70-106 mg/dl Lactic Acid Level 3.3 *H 0.4-2.0 mmol/L Random Vancomycin Level < 3.0 L 5-10 ug/mL Urine Color Light-orange Yellow Urine Clarity Ex.turbid Clear Urine pH 5.5 5.0-9.0 Urine Specific [place] 1.021 1.001-1.035 Urine Protein 2+ H Negative Urine Ketones 1+ H Negative Urine Blood 2+ H Negative /uL Urine Nitrite Negative Negative Urine Bilirubin Negative Negative Urine Urobilinogen Normal Negative mg/dL Urine Leukocyte Esterase Negative Negative /uL Urine RBC 6 0 - 4 /hpf Urine WBC 6 0 - 5 /hpf Urine Squamous Epithelial Cells Many <5 /hpf Urine Bacteria Few H None Seen /hpf Urine Yeast (Budding) Few None Seen /hpf Urine Creatinine 155.61 H 30.0-125.0 mg/dL Urine Protein/Creatinine Ratio 1.63 Urine Sodium 28 L 40-220 mmol/L Urine Glucose Normal Normal mg/dL Urine Total Protein 252.9 H 1-14 mg/dL Test 02/19/24 05:06 02/19/24 00:10 02/18/24 21:00 02/18/24 20:53 Range/Units White Blood Count 17.3 H 4.4-10.8 10^3/uL Red Blood Count 4.57 4.0-5.20 10^6/uL Hemoglobin 13.3 12.2-16.2 g/dL Hematocrit 39.7 36.0-46.0 % Mean Corpuscular Volume 86.9 80.0-100.0 fL Mean Corpuscular Hemoglobin 29.2 28.0-32.0 pg Mean Corpuscular Hemoglobin Concent 33.5 32.0-36.0 g/dL Red Cell Distribution Width 14.2 11.8-14.3 % Platelet Count 218 140-450 10^3/uL Mean Platelet Volume 8.4 6.9-10.8 fL Neutrophils (%) (Auto) 37.0-80.0 % Lymphocytes (%) (Auto) 10.0-50.0 % Monocytes (%) (Auto) 0.0-12.0 % Basophils (%) (Auto) 0.0-2.0 % Neutrophils # (Auto) 1.6-8.6 10 ^3/uL Lymphocytes # (Auto) 0.4-5.4 10 ^3/uL Monocytes # (Auto) 0-1.3 10 ^3/uL Differential Total Cells Counted 100.0 100 Neutrophils % (Manual) 89 H 37.0-80.0 Band Neutrophils % (Manual) 7 Lymphocytes % (Manual) 3 L 10.0-50.0 Monocytes % (Manual) 1 0-12 Eosinophils % (Manual) 0 0-7 Basophils % (Manual) 0 0.0-2.0 Metamyelocytes % (manual) 0 Myelocytes % (Manual) 0 Promyelocytes % (Manual) 0 Blast Cells % (Manual) 0 Reactive Lymphocytes 0 Platelet Estimate Adequate Sodium Level 138 136-145 mmol/L Potassium Level 4.0 3.5-5.1 mmol/L Chloride Level 102 98-107 mmol/L Carbon Dioxide Level 24 20-31 mmol/L Anion Gap 12 5-15 Blood Urea Nitrogen 42 #H 9-23 mg/dL BUN/Creatinine Ratio 17.5 10.0-20.0 Serum Glucose 174 H 74-106 mg/dL Calcium Level 10.0 8.7-10.4 mg/dL Total Bilirubin 0.8 0.2-1.0 mg/dL Aspartate Amino Transferase (AST) 10 L 13-40 U/L Alanine Aminotransferase (ALT) 22 7-40 U/L Alkaline Phosphatase 101 46-116 U/L Total Protein 7.1 5.7-8.2 g/dL Albumin 4.2 3.2-4.8 g/dL Troponin I High Sensitivity 11 </=34 ng/L Influenza Type A Antigen Negative Negative Influenza Type B Antigen Negative Negative SARS-CoV-2 Antigen (Rapid) Negative NEGATIVE Eosinophils (%) (Auto) 0.1 0.0-7.0 % Eosinophils # (Auto) 0 0-0.8 10 ^3/uL Basophils # (Auto) 0.1 0-0.2 10 ^3/uL Nucleated Red Blood Cells 0.1 % B-Type Natriuretic Peptide 44.78 0-100 pg/mL Thyroid Stimulating Hormone (TSH) 1.32 0.55-4.78 uIU/mL Microbiology Date/Time Source Procedure Growth Status 02/19/24 03:22 Blood Blood Culture - Preliminary NO GROWTH AFTER 24 HOURS OF INCUBATION. Resulted Imaging: MRI thoracic spine 04/09/2023 IMPRESSION: 1. Limited evaluation without the presence of intravenous contrast. Within this limitation, no signal abnormality in the thoracic spinal cord to suggest demyelinating lesion. 2. Right paracentral disc protrusion at T7-T8. No significant central or neural foraminal stenosis in the thoracic spine. 3. Lobular T2 hyperintense mass in the body of the pancreas. Further evaluation is warranted. MRI of the abdomen with intravenous contrast utilizing a pancreatic protocol is recommended. T2 hyperintense lesion in the kidney can also be assessed at this time though favored to represent a benign cyst. CT abdomen pelvis, not completed yet, patient unable to lay still due to pain Assessment: Abdominal pain Pancreatic mass Multiple sclerosis Plan: Discussed with Dr. Hernandez CT abdomen pelvis pending Swallow eval pending CA 19-9 Recommend outpatient EUS for evaluation of pancreatic mass We will continue to monitor the patient Discussed plan with patient and RN Thank you for this consult Date of Service: Feb 20, 2024 Billing Provider: GEOVANY VASQUEZ Common Visit Codes: CONSULT ONLY Consultation Codes: [id number] CONSULT <60MIN GEOVANY VASQUEZ Feb 20, 2024 12:08
[2024-02-20 12:16] LABS: Band Neutrophils % (manual) 10; Lymphocytes % (manual) 2 (10.0-50.0); Monocytes % (manual) 5 (0-12); Platelet Estimate Adequate
--- NOTE | 2024-02-20 12:49 | DVHPN2 ---
Progress Note Date Seen: Feb 20, 2024 Resident Creating Document: AUBREY LLOYD RESIDENT Medical Necessity Reason Pt with a Central, PICC or Fol: No Subjective Review of Systems Patient is 78-year-old female with past medical history of multiple sclerosis, hypothyroidism who presented to hospital with a chief complaint of progressive generalized weakness mainly in lower extremity, sore throat which prompted this visit. As per patient most of the family members sick with sore throat and she is feeling the same way and she is not feeling better. As per patient she has been diagnosed with chronic kidney disease as well but not away from exit diagnosis. Patient has been remission on medication for multiple sclerosis, taking levothyroxine at home. Denying any other diagnosis or taking medication for it. Nephrology consultation has been done for acute on chronic renal failure. No any further events during recent hospitalization. Patient denying any other symptoms including fever, chills, shortness of breath, any other symptoms. Past Medical History Multiple sclerosis, levothyroxine Patient seen and examined at bedside. No other new complaints. Patient had allergic reaction to vancomycin. Given steroids and Benadryl. Objective vital signs Vital Sign Date Time Temp Pulse Resp B/P (MAP) Pulse Ox O2 Delivery O2 Flow Rate FiO2 02/20/24 11:00 114 18 95/40 02/20/24 09:29 99 02/20/24 09:29 Nasal Cannula 2.0 02/20/24 09:28 28 02/20/24 08:50 97.9 97.9 Total Intake and Output 02/19/24 02/19/24 02/20/24 15:00 23:00 07:00 Intake Total 100 ml 890 ml 250 ml Output Total 300 ml Balance 100 ml 890 ml -50 ml medications Current Medications Medications Dose Ordered Sig/Adeel Route Start Time Stop Time Status Last Admin Dose Admin Levothyroxine Sodium 50 mcg QAM@0600 PO 02/19/24 06:00 02/19/24 06:23 50 MCG Acetaminophen/ Hydrocodone Bitart 1 tab Q4HP PRN PO 02/18/24 21:45 02/19/24 15:30 1 TAB Ondansetron HCl 4 mg Q4HP PRN IV 02/18/24 21:45 Docusate Sodium 100 mg BIDPRN PRN PO 02/18/24 21:45 Morphine Sulfate 2 mg Q4HPRN PRN IV 02/18/24 21:45 02/20/24 10:23 2 MG Ceftriaxone Sodium 50 ml @ 100 mls/hr DAILY@2200 IV 02/19/24 22:00 02/19/24 21:05 100 MLS/HR Nitroglycerin 0.4 mg Q5MINP PRN SL 02/18/24 22:15 Morphine Sulfate 2 mg Q30M PRN IV 02/18/24 22:15 Diagnostic Test (Pha) 1 strip ACHS 02/19/24 07:00 02/20/24 11:44 1 STRIP Insulin Human Regular ACHS SC 02/19/24 07:00 02/19/24 06:40 3 UNITS Dextrose 50 ml UD PRN IV 02/18/24 22:30 Vancomycin HCl 0 ml @ 0 mls/hr UD IV 02/18/24 23:00 Sodium Chloride 1,000 ml @ 100 mls/hr Q10H IV 02/19/24 13:45 02/20/24 09:15 100 MLS/HR Albuterol 2.5 mg Q4HPRN PRN NEB 02/19/24 16:00 02/20/24 09:34 2.5 MG Patient Own Medication 40 mg MWF SC 02/20/24 11:00 Pantoprazole Sodium 40 mg DAILY IV 02/21/24 10:00 Examination General Appearance: Cooperative. Well developed. Well nourished. NAD Head Exam: Normal inspection Neck Exam: Normal inspection. Non-tender. Normal alignment Pulmonary/Respiratory: Chest non-tender. Clear bilateral breath sounds Cardiovascular/Chest: Regular rate and rhythm. No murmurs. No JVD. Peripheral Pulses: 2+ Radial (R). 2+ Radial (L). 2+ Pedal (R). 2+ Pedal (L) Abdominal Exam: Normal bowel sounds. Soft. Nontender. No hepatospenomegaly. No masses Ankle Exam: Negative ankle edema Lower extremities: Negative lower extremity edema Neuro/Mental Status: A&O x4. Coherent, 2+ muscle strength of lower extremity, 5+ motor strength, intake sensory. Thoughts/Psych: Normal thought pattern. Appropriate mood and affect. Good judgement and insight, Appearance: In no acute distress Skin Exam: Erythematous skin, warm . laboratory and microbiology Laboratory Tests 02/20/24 06:27 Test 02/20/24 06:27 Range/Units Serum Glucose 140 H 74-106 mg/dL Microbiology Date/Time Source Procedure Growth Status 02/19/24 18:46 Voided Urine Urine Culture - Preliminary Resulted 02/19/24 03:22 Blood Blood Culture - Preliminary NO GROWTH AFTER 24 HOURS OF INCUBATION. Resulted Problem List/Assessment/Plan Problem List/Assessment/Plan MARIANA on CKD stage IV, likely hemodynamically mediated prerenal versus ischemic ATN Sepsis unknown source of infection Multiple sclerosis Lactic acidosis History of hypothyroidism Proteinuria:1.6 g/day Plan/recommendation -FENA:0.3 %, likely prerenal -continue IV fluid normal saline 100 mL/hour -continue to monitor kidney function, strict I&O -bladder scan showed 100 mL residual urine. -renal ultrasound on 02/19/2024 showed normal sonographic appearance of kidney, no hydronephrosis -protein creatinine ratio 1.63, Nephrotic Proteinuria:1.6 g/day Estimated 24 hour urinary protein excretion -avoid nephrotoxic drugs -we will closely follow-up . Addendum Patient seen and examined, plan discussed with resident. Agree with above, we will follow closely Plan discussed with: Patient, Other (RN) My Orders My Orders Orders - AUBREY LLOYD Procedure Category Date Status Time Sodium Chloride 0.9% PHA 02/19/24 In Process 13:45 Bladder Scan ED NURSING 02/19/24 Transmitted Strict I&O ED NURSING 02/19/24 Transmitted Kidney US 02/19/24 Resulted 13:32 Dietary Evaluation Review Recommendations by RD: Dietary education by RD Comments: Rresume CCHO-60 with Renal specific-50g protein consideration Expected Outcomes/Goals: Controlled blood glucose, avoid uremic symdromes AUBREY LLOYD RESIDENT Feb 20, 2024 12:49 KWAKU CASTELLON MD Feb 20, 2024 18:27
[2024-02-20] MEDS: KETOROLAC TROMETH 30 MG/ML 1ML VIAL IV ONE (13:02)
--- NOTE | 2024-02-20 15:13 | DVH ---
CT ABDOMEN AND PELVIS WITHOUT CONTRAST CLINICAL HISTORY: abd pain TECHNIQUE: Multiple contiguous axial images of the abdomen and pelvis without intravenous contrast. The images were reformatted degenerate coronal and sagittal reconstructions. All CT scans at this medical facility are performed using dose modulation techniques as appropriate t o a performed exam including the following:Automated exposure control was utilized; adjustment of the MA and/or KV according to patient size; and use of iterative reconstruction technique. Radiation Dose Information: CT Dose: CTDI volume is 12 mGy. Dose-length product is 700 mGy*cm Comparison: None FINDINGS: Evaluation of the abdomen and pelvis is limited without intravenous contrast. There is a nonspecific 2.8 x 2.9 cm hypodense mass in the proximal body of the pancreas. The liver, gallbladder, kidneys, adrenal glands, and spleen appear within normal limits. There is no gross evidence of mesenteric or retroperitoneal lymphadenopathy. There is no free fluid o r free air. The stomach grossly appears unremarkable. The small and large bowel loops demonstrate normal caliber . There are multiple diverticula in the sigmoid colon without evidence of acute diverticulitis. The abdominal aorta and IVC appear within normal limits. There is a Harding catheter in the bladder which is decompressed. Pelvic organ appears within normal li mits. There is no gross evidence of a pelvic mass. There is no free fluid collection. There are opacities in the bilateral posterior lung bases which may represent atelectasis versus airs pace disease. There is no acute osseous abnormality. IMPRESSION: 1. Nonspecific 2.8 x 2.9 cm hypodense mass in the proximal body of the pancreas. Further evaluation w ith MRI abdomen with contrast is recommended. 2. Sigmoid diverticulosis. 3. Opacities in the bilateral posterior lung bases may represent atelectasis versus airspace disease. Clinical correlation is recommended. HS:Y
--- NOTE | 2024-02-20 17:32 | DVHPN2 ---
Subjective Seen and examined at bedside, patient had an allergic reaction to Vancomycin for UTI. Will change to Zyvox. Cont Abx. Changes from previous H/P or p: No Changes Eyes: No Pain, No Vision change, No Conjunctivae inflammation, No Eyelid inflammation, No Other, No Redness ENT: No Ear pain, No Ear discharge, No Nose pain, No Nose discharge, No Nose congestion, No Mouth pain, No Mouth swelling, No Throat pain, No Throat swelling, No Other Cardiovascular: No Chest Pain, No Palpitations, No Orthopnea, No Paroxysmal Noc. Dyspnea, No Edema, No Lt Headedness, No Other Respiratory: No Cough, No Dry, No Shortness of breath, No SOB with excertion, No Wheezing, No Hemoptysis, No Pleuritic Pain, No Sputum, No Other Gastrointestinal: No Nausea, No Vomiting, No Abdominal Pain, No Diarrhea, No Constipation, No Melena, No Hematochezia, No Other Genitourinary: No Dysuria, No Frequency, No Incontinence, No Hematuria, No Retention, No Other Musculoskeletal: No other, No neck pain, No shoulder pain, No arm pain, No back pain, No hand pain, No leg pain, No foot pain Skin: No Rash, No Lesions, No Jaundice, No Bruising, No Other Objective Vitals Vital Signs Date Time Temp Pulse Resp B/P (MAP) Pulse Ox O2 Delivery O2 Flow Rate FiO2 02/20/24 13:00 97.5 114 16 95/40 (58) 98 97.5 02/20/24 12:52 Nasal Cannula 2.0 02/20/24 12:52 28 Intake/Output Intake and Output 02/20/24 07:00 Intake Total 1240 ml Output Total 300 ml Balance 940 ml Intake Oral 340 ml IV Total 900 ml Output Urine Total 300 ml # Voids 3 # Bowel Movements 2 Exam Gen: in bed NAD Cvs: Tachycardic Resp: BLAE Abd: Soft, NT, BS+ Management Technician: AAO x 4 General Appearance: Other (lethargic, and unable to have conversation) Neuro: Other (moving extremities) Medications Current Medications Medications Dose Ordered Sig/Adeel Route Start Time Stop Time Status Last Admin Dose Admin Levothyroxine Sodium 50 mcg QAM@0600 PO 02/19/24 06:00 02/19/24 06:23 50 MCG Acetaminophen/ Hydrocodone Bitart 1 tab Q4HP PRN PO 02/18/24 21:45 02/19/24 15:30 1 TAB Ondansetron HCl 4 mg Q4HP PRN IV 02/18/24 21:45 Docusate Sodium 100 mg BIDPRN PRN PO 02/18/24 21:45 Morphine Sulfate 2 mg Q4HPRN PRN IV 02/18/24 21:45 02/20/24 10:23 2 MG Ceftriaxone Sodium 50 ml @ 100 mls/hr DAILY@2200 IV 02/19/24 22:00 02/19/24 21:05 100 MLS/HR Nitroglycerin 0.4 mg Q5MINP PRN SL 02/18/24 22:15 Morphine Sulfate 2 mg Q30M PRN IV 02/18/24 22:15 Diagnostic Test (Pha) 1 strip ACHS 02/19/24 07:00 02/20/24 17:09 1 STRIP Insulin Human Regular ACHS SC 02/19/24 07:00 02/19/24 06:40 3 UNITS Dextrose 50 ml UD PRN IV 02/18/24 22:30 Sodium Chloride 1,000 ml @ 100 mls/hr Q10H IV 02/19/24 13:45 02/20/24 09:15 100 MLS/HR Albuterol 2.5 mg Q4HPRN PRN NEB 02/19/24 16:00 02/20/24 09:34 2.5 MG Patient Own Medication 40 mg MWF SC 02/20/24 11:00 Pantoprazole Sodium 40 mg DAILY IV 02/21/24 10:00 Linezolid 600 mg BID PO 02/20/24 22:00 UNV Laboratory Results Laboratory Tests 02/20/24 06:27 Chemistry Test 02/20/24 06:27 Albumin 3.1 g/dL (3.2-4.8) L Calcium Level 8.8 mg/dL (8.7-10.4) Magnesium Level 1.9 mg/dL (1.6-2.6) Total Protein 5.5 g/dL (5.7-8.2) L LFT Test 02/20/24 06:27 Alanine Aminotransferase (ALT) 20 U/L (7-40) Alkaline Phosphatase 86 U/L (46-116) Aspartate Amino Transferase (AST) 22 U/L (13-40) Total Bilirubin 0.4 mg/dL (0.2-1.0) Urinalysis Test 02/19/24 18:46 Urine Color Light-orange (Yellow) Urine Clarity Ex.turbid (Clear) Urine pH 5.5 (5.0-9.0) Urine Specific [place] 1.021 (1.001-1.035) Urine Protein 2+ (Negative) H Urine Ketones 1+ (Negative) H Urine Blood 2+ /uL (Negative) H Urine Nitrite Negative (Negative) Urine Bilirubin Negative (Negative) Urine Urobilinogen Normal mg/dL (Negative) Urine Leukocyte Esterase Negative /uL (Negative) Urine RBC 6 /hpf (0 - 4) Urine WBC 6 /hpf (0 - 5) Urine Squamous Epithelial Cells Many /hpf (<5) Urine Bacteria Few /hpf (None Seen) H Urine Yeast (Budding) Few /hpf (None Seen) Urine Creatinine 155.61 mg/dL (30.0-125.0) H Urine Protein/Creatinine Ratio 1.63 Urine Sodium 28 mmol/L (40-220) L Urine Glucose Normal mg/dL (Normal) Urine Total Protein 252.9 mg/dL (1-14) H Microbiology Microbiology Date/Time Source Procedure Growth Status 02/19/24 18:46 Voided Urine Urine Culture - Preliminary Resulted 02/19/24 03:22 Blood Blood Culture - Preliminary NO GROWTH AFTER 24 HOURS OF INCUBATION. Resulted Assessment/Plan Assessment/Plan #acute kidney injury due to acute tubular necrosis no baseline to compare- IVF, Nephro Cx #acute metabolic encephalopathy due to electrolyte abnormalities and uremia- Improving #MS history #Sepsis present on admision, tachycardic, elevated WBC, source possible UTI- Zyvox, Rocephin critical care time 39 mins Plan discussed with: Patient My Orders Orders - NASIM OBREGON MD Procedure Category Date Status Time Apply Barrier Cream CAROLYN 02/20/24 In Process 13:00 Specialty Bed Mattress ORDERS 02/20/24 Transmitted 13:00 Linezolid Tablet PHA 02/20/24 Logged (Zyvox Tablet) 22:00 Basic Metabolic Panel LAB 02/21/24 Verified 04:00 Complete Blood Count LAB 02/21/24 Verified 04:00 Date of Service: Feb 20, 2024 Billing Provider: NASIM OBREGON MD Common Visit Codes: [id number] CARE 30-74 MIN NASIM OBREGON MD Feb 20, 2024 17:32
[2024-02-20] MEDS ORDERED: [UNRECOGNIZED DRUG - CODE] SC (20:08)
[2024-02-20] MEDS ORDERED: LEVO50TA7 PO (20:08)
[2024-02-20] MEDS: LINEZOLID 600MG TABLET PO SCH (22:02)
[2024-02-21] VITALS (10 sets, daily range): BP systolic 106–125; BP diastolic 50–69; PULSE 78–107; RESP 16–20; TEMP 97.4–98.9; O2SAT 93–99
[2024-02-21 06:36] LABS: Anion Gap 13 (5-15); Potassium 4.5 mmol/L (3.5-5.1); Sodium 142 mmol/L (136-145)
[2024-02-21 06:49] LABS: Blood Urea Nitrogen 67 mg/dL (9-23); Calcium 8.6 mg/dL (8.7-10.4); Carbon Dioxide 18 mmol/L (20-31); Chloride 111 mmol/L (98-107); Glucose 204 mg/dL (74-106); Hemoglobin 11.3 g/dL (12.2-16.2); Mean Corpuscular Hgb Conc. 33.2 g/dL (32.0-36.0); Mean Corpuscular Volume 87.4 fL (80.0-100.0); Platelet Count (auto) 212 10^3/uL (140-450); Red Blood Cells 3.89 10^6/uL (4.0-5.20); Red Cell Distribution Width 14.9 % (11.8-14.3); White Blood Cell 17.9 10^3/uL (4.4-10.8)
[2024-02-21 07:06] LABS: Basophils % (manual) 0 (0.0-2.0); Blast Cells 0; Eosinophils % (manual) 0 (0-7); Metamyelocytes % 0; Myelocytes % 0; Promyelocytes % 0; Reactive Lymphocytes 0
[2024-02-21 08:27] LABS: Band Neutrophils % (manual) 9; Lymphocytes % (manual) 3 (10.0-50.0); Monocytes % (manual) 6 (0-12); Platelet Estimate Adequate
[2024-02-21] MEDS: PANTOPRAZOLE 40 MG/10 ML VIAL INJ IV SCH (11:31)
--- NOTE | 2024-02-21 14:54 | DVHPN2 ---
Subjective Seen and examined at bedside, WBC still elevated. Cont Abx for now, Changes from previous H/P or p: No Changes Eyes: No Pain, No Vision change, No Conjunctivae inflammation, No Eyelid inflammation, No Other, No Redness ENT: No Ear pain, No Ear discharge, No Nose pain, No Nose discharge, No Nose congestion, No Mouth pain, No Mouth swelling, No Throat pain, No Throat swelling, No Other Cardiovascular: No Chest Pain, No Palpitations, No Orthopnea, No Paroxysmal Noc. Dyspnea, No Edema, No Lt Headedness, No Other Respiratory: No Cough, No Dry, No Shortness of breath, No SOB with excertion, No Wheezing, No Hemoptysis, No Pleuritic Pain, No Sputum, No Other Gastrointestinal: No Nausea, No Vomiting, No Abdominal Pain, No Diarrhea, No Constipation, No Melena, No Hematochezia, No Other Genitourinary: No Dysuria, No Frequency, No Incontinence, No Hematuria, No Retention, No Other Musculoskeletal: No other, No neck pain, No shoulder pain, No arm pain, No back pain, No hand pain, No leg pain, No foot pain Skin: No Rash, No Lesions, No Jaundice, No Bruising, No Other Objective Vitals Vital Signs Date Time Temp Pulse Resp B/P (MAP) Pulse Ox O2 Delivery O2 Flow Rate FiO2 02/21/24 13:05 97.8 78 17 125/63 (83) 96 97.8 02/20/24 22:53 Room Air* 0 21 Intake/Output Intake and Output 02/21/24 07:00 Intake Total 2450 ml Output Total 350 ml Balance 2100 ml Intake Oral 800 ml IV Total 1650 ml Output Urine Total 350 ml Exam Gen: in bed NAD Cvs: N S1/S2, RRR Resp: BLAE Abd: Soft, NT, BS+ Men'S Leather Dress Belt Maker: AAO x 4 General Appearance: Other (lethargic, and unable to have conversation) Neuro: Other (moving extremities) Medications Current Medications Medications Dose Ordered Sig/Adeel Route Start Time Stop Time Status Last Admin Dose Admin Levothyroxine Sodium 50 mcg QAM@0600 PO 02/19/24 06:00 02/21/24 06:15 50 MCG Acetaminophen/ Hydrocodone Bitart 1 tab Q4HP PRN PO 02/18/24 21:45 02/19/24 15:30 1 TAB Ondansetron HCl 4 mg Q4HP PRN IV 02/18/24 21:45 Docusate Sodium 100 mg BIDPRN PRN PO 02/18/24 21:45 Morphine Sulfate 2 mg Q4HPRN PRN IV 02/18/24 21:45 02/20/24 10:23 2 MG Ceftriaxone Sodium 50 ml @ 100 mls/hr DAILY@2200 IV 02/19/24 22:00 02/20/24 22:02 100 MLS/HR Nitroglycerin 0.4 mg Q5MINP PRN SL 02/18/24 22:15 Morphine Sulfate 2 mg Q30M PRN IV 02/18/24 22:15 Diagnostic Test (Pha) 1 strip ACHS 02/19/24 07:00 02/21/24 11:32 1 STRIP Insulin Human Regular ACHS SC 02/19/24 07:00 02/21/24 11:57 4 UNITS Dextrose 50 ml UD PRN IV 02/18/24 22:30 Sodium Chloride 1,000 ml @ 100 mls/hr Q10H IV 02/19/24 13:45 02/20/24 19:45 100 MLS/HR Albuterol 2.5 mg Q4HPRN PRN NEB 02/19/24 16:00 02/20/24 09:34 2.5 MG Patient Own Medication 40 mg MWF SC 02/20/24 11:00 Pantoprazole Sodium 40 mg DAILY IV 02/21/24 10:00 02/21/24 11:31 40 MG Linezolid 600 mg BID PO 02/20/24 22:00 02/21/24 11:31 600 MG Laboratory Results Laboratory Tests 02/21/24 05:43 Chemistry Test 02/21/24 05:43 Calcium Level 8.6 mg/dL (8.7-10.4) L Urinalysis Test 02/19/24 18:46 Urine Color Light-orange (Yellow) Urine Clarity Ex.turbid (Clear) Urine pH 5.5 (5.0-9.0) Urine Specific [place] 1.021 (1.001-1.035) Urine Protein 2+ (Negative) H Urine Ketones 1+ (Negative) H Urine Blood 2+ /uL (Negative) H Urine Nitrite Negative (Negative) Urine Bilirubin Negative (Negative) Urine Urobilinogen Normal mg/dL (Negative) Urine Leukocyte Esterase Negative /uL (Negative) Urine RBC 6 /hpf (0 - 4) Urine WBC 6 /hpf (0 - 5) Urine Squamous Epithelial Cells Many /hpf (<5) Urine Bacteria Few /hpf (None Seen) H Urine Yeast (Budding) Few /hpf (None Seen) Urine Creatinine 155.61 mg/dL (30.0-125.0) H Urine Protein/Creatinine Ratio 1.63 Urine Sodium 28 mmol/L (40-220) L Urine Glucose Normal mg/dL (Normal) Urine Total Protein 252.9 mg/dL (1-14) H Microbiology Microbiology Date/Time Source Procedure Growth Status 02/19/24 18:46 Voided Urine Urine Culture - Final Escherichia coli Complete 02/19/24 03:22 Blood Blood Culture - Preliminary NO GROWTH AFTER 48 HOURS OF INCUBATION. Resulted Assessment/Plan Assessment/Plan #acute kidney injury due to acute tubular necrosis no baseline to compare- IVF, Nephro Cx #acute metabolic encephalopathy due to electrolyte abnormalities and uremia- Improving #MS history #Sepsis present on admision, tachycardic, elevated WBC, source possible UTI- Zyvox, Rocephin Plan discussed with: Patient My Orders Orders - NASIM OBREGON MD Procedure Category Date Status Time Apply Barrier Cream CAROLYN 02/20/24 In Process 13:00 Specialty Bed Mattress ORDERS 02/20/24 Transmitted 13:00 Linezolid Tablet PHA 02/20/24 In Process (Zyvox Tablet) 22:00 Basic Metabolic Panel LAB 02/22/24 Verified 04:00 Complete Blood Count LAB 02/22/24 Verified 04:00 Date of Service: Feb 21, 2024 Billing Provider: NASIM OBREGON MD Common Visit Codes: [id number] INP/OBS CARE(HIGH) NASIM OBREGON MD Feb 21, 2024 14:54
--- NOTE | 2024-02-21 16:17 | DVHPN2 ---
Progress Note Date Seen: Feb 21, 2024 Medical Necessity Reason Pt with a Central, PICC or Fol: No Subjective Patient reports: Other (Poor historian) Review of Systems: Deferred Objective vital signs Vital Sign Date Time Temp Pulse Resp B/P (MAP) Pulse Ox O2 Delivery O2 Flow Rate FiO2 02/21/24 13:05 97.8 78 17 125/63 (83) 96 97.8 02/21/24 10:05 Room Air* 0 21 Total Intake and Output 02/20/24 02/20/24 02/21/24 15:00 23:00 07:00 Intake Total 800 ml 600 ml 1050 ml Output Total 350 ml Balance 800 ml 600 ml 700 ml medications Current Medications Medications Dose Ordered Sig/Adeel Route Start Time Stop Time Status Last Admin Dose Admin Levothyroxine Sodium 50 mcg QAM@0600 PO 02/19/24 06:00 02/21/24 06:15 50 MCG Acetaminophen/ Hydrocodone Bitart 1 tab Q4HP PRN PO 02/18/24 21:45 02/21/24 16:04 1 TAB Ondansetron HCl 4 mg Q4HP PRN IV 02/18/24 21:45 Docusate Sodium 100 mg BIDPRN PRN PO 02/18/24 21:45 Morphine Sulfate 2 mg Q4HPRN PRN IV 02/18/24 21:45 02/20/24 10:23 2 MG Ceftriaxone Sodium 50 ml @ 100 mls/hr DAILY@2200 IV 02/19/24 22:00 02/20/24 22:02 100 MLS/HR Nitroglycerin 0.4 mg Q5MINP PRN SL 02/18/24 22:15 Morphine Sulfate 2 mg Q30M PRN IV 02/18/24 22:15 Diagnostic Test (Pha) 1 strip ACHS 02/19/24 07:00 02/21/24 11:32 1 STRIP Insulin Human Regular ACHS SC 02/19/24 07:00 02/21/24 11:57 4 UNITS Dextrose 50 ml UD PRN IV 02/18/24 22:30 Sodium Chloride 1,000 ml @ 100 mls/hr Q10H IV 02/19/24 13:45 02/20/24 19:45 100 MLS/HR Albuterol 2.5 mg Q4HPRN PRN NEB 02/19/24 16:00 02/20/24 09:34 2.5 MG Patient Own Medication 40 mg MWF SC 02/20/24 11:00 Pantoprazole Sodium 40 mg DAILY IV 02/21/24 10:00 02/21/24 11:31 40 MG Linezolid 600 mg BID PO 02/20/24 22:00 02/21/24 11:31 600 MG Examination: GENERAL:Abnormal, MSK:Abnormal, NEURO:Abnormal laboratory and microbiology Laboratory Tests 02/21/24 05:43 Test 02/21/24 05:43 Range/Units Serum Glucose 204 H 74-106 mg/dL Microbiology Date/Time Source Procedure Growth Status 02/19/24 18:46 Voided Urine Urine Culture - Final Escherichia coli Complete 02/19/24 03:22 Blood Blood Culture - Preliminary NO GROWTH AFTER 48 HOURS OF INCUBATION. Resulted Problem List/Assessment/Plan Problem List/Assessment/Plan MARIANA on CKD stage IV, likely hemodynamically mediated prerenal versus ischemic ATN Sepsis unknown source of infection Multiple sclerosis Lactic acidosis History of hypothyroidism Proteinuria:1.6 g/day Plan/recommendation Blood pressure is little better today -continue IV fluid normal saline 100 mL/hour -continue to monitor kidney function, strict I&O Urine culture showing E coli Plan discussed with: Patient, Other Dietary Evaluation Review Recommendations by RD: Dietary education by RD Comments: Rresume CCHO-60 with Renal specific-50g protein consideration Expected Outcomes/Goals: Controlled blood glucose, avoid uremic symdromes KWAKU CASTELLON MD Feb 21, 2024 16:17
--- NOTE | 2024-02-21 19:18 | DVHPN2 ---
Progress Note - Dictate Date Seen: Feb 21, 2024 Medical Necessity Reason Pt with a Central, PICC or Fol: No Subjective No new complaints Patient passed swallow eval and is able to take pureed diet CA 19-[address] abdomen suggestive of possible pancreatic mass in the proximal body of the pancreas vital signs Vital Sign Date Time Temp Pulse Resp B/P (MAP) Pulse Ox O2 Delivery O2 Flow Rate FiO2 02/21/24 17:04 97.8 101 20 124/69 (87) 95 97.8 02/21/24 10:05 Room Air* 0 21 Total Intake and Output 02/20/24 02/20/24 02/21/24 15:00 23:00 07:00 Intake Total 800 ml 600 ml 1050 ml Output Total 350 ml Balance 800 ml 600 ml 700 ml medications Current Medications Medications Dose Ordered Sig/Adeel Route Start Time Stop Time Status Last Admin Dose Admin Levothyroxine Sodium 50 mcg QAM@0600 PO 02/19/24 06:00 02/21/24 06:15 50 MCG Acetaminophen/ Hydrocodone Bitart 1 tab Q4HP PRN PO 02/18/24 21:45 02/21/24 16:04 1 TAB Ondansetron HCl 4 mg Q4HP PRN IV 02/18/24 21:45 Docusate Sodium 100 mg BIDPRN PRN PO 02/18/24 21:45 Morphine Sulfate 2 mg Q4HPRN PRN IV 02/18/24 21:45 02/20/24 10:23 2 MG Ceftriaxone Sodium 50 ml @ 100 mls/hr DAILY@2200 IV 02/19/24 22:00 02/20/24 22:02 100 MLS/HR Nitroglycerin 0.4 mg Q5MINP PRN SL 02/18/24 22:15 Morphine Sulfate 2 mg Q30M PRN IV 02/18/24 22:15 Diagnostic Test (Pha) 1 strip ACHS 02/19/24 07:00 02/21/24 17:06 1 STRIP Insulin Human Regular ACHS SC 02/19/24 07:00 02/21/24 17:32 4 UNITS Dextrose 50 ml UD PRN IV 02/18/24 22:30 Sodium Chloride 1,000 ml @ 100 mls/hr Q10H IV 02/19/24 13:45 02/21/24 18:01 100 MLS/HR Albuterol 2.5 mg Q4HPRN PRN NEB 02/19/24 16:00 02/20/24 09:34 2.5 MG Patient Own Medication 40 mg MWF SC 02/20/24 11:00 Pantoprazole Sodium 40 mg DAILY IV 02/21/24 10:00 02/21/24 11:31 40 MG Linezolid 600 mg BID PO 02/20/24 22:00 02/21/24 11:31 600 MG objective General: Lethargic poor historian unable to have conversation Chest: lung burns clear to auscultation Heart: RRR, no murmur Abdomen: non-distended, nontender laboratory and microbiology Laboratory Tests 02/21/24 05:43 Test 02/21/24 05:43 Range/Units Serum Glucose 204 H 74-106 mg/dL Problems(with codes): (1) Abnormal finding on GI tract imaging (2) Exacerbation of multiple sclerosis (3) Elevated lactic acid level (4) Acute kidney injury (5) Febrile illness, acute (6) Sepsis, unspecified organism Prognosis Plan Discharge planning is in progress possibly to the [facility] MRI of the pancreas with pancreas protocol If the above is nondiagnostic patient may need an outpatient elective endoscopic ultrasound with FNA in the future I will follow up patient with you Dietary Evaluation Review Recommendations by RD: Dietary education by OVIDIO Comments: Rresume CCHO-60 with Renal specific-50g protein consideration Expected Outcomes/Goals: Controlled blood glucose, avoid uremic symdromes Plan discussed with: Other (Alison peoples) ROSANNA GATES MD Feb 21, 2024 19:18
--- NOTE | 2024-02-21 21:15 | DVHPN2 ---
Progress Note - Dictate Date Seen: Feb 21, 2024 Medical Necessity Reason Pt with a Central, PICC or Fol: No Subjective Ms. Padmini is a right-handed female with a history of hypertension, hypothyroidism, osteoporosis, the patient was came to the [facility] on 02/18[facility]2024 with a chief company of chills, fever, coughing, sharp breath, she was history of multiple sclerosis I have seen and examined the patient, I have discussed with her nurse, she was doing much better today, more energized, the abdominal pain is much better, awake, oriented x3, she remembers our conversation yesterday and before GI input appreciated Urinalysis, 02/19/2024: WBC: 6, urine leukocyte esterase: Negative WBC/HB/PLT/MCV, 02/19/2024: 743/13.3/218/86.9 BUN/CR, 02/19/2024: 42/2.4, 02/20/24: /2.6 HCO3, 02/21/2024: 18 Liver function tests, 02/19/2024: Unremarkable Lactic acid, 02/19/2020 4:3.3 Chest x-ray, 02/20/2024: No acute cardiopulmonary disease CT abdomen/pelvis, 02/20/2024: 1. Nonspecific 2.8 x 2.9 cm hypodense mass in the proximal body of the pancreas. Further evaluation with MRI abdomen with contrast is recommended. 2. Sigmoid diverticulosis. 3. Opacities in the bilateral posterior lung bases may represent atelectasis versus airspace disease. Clinical correlation is recommended MRI head, 04/14/2023: There are periventricular and T2/FLAIR hyperintense foci with periventricular T1/FLAIR hypointense, T2 hyperintense lesions with surrounding T2/FLAIR hyperintensity and minimal involvement of the right body of the corpus callosum. Findings are suggestive of demyelinating lesions with the T1 hypointense lesions representing chronic lesions. There is no diffusion restriction to suggest an active process MRI C-spine, 04/14/2023: Abnormal cord signal in the posterior-central portion of the cervical spinal cord at the level of C7 vertebral body that may represent demyelination plaque or myelomalacia. No evidence of cord edema. Straightening of normal lordosis, multilevel degenerative disc disease and posterior facet arthropathy with evidence of nerve impingement at C4-C5 and C5-C6 levels. C4-C5: Moderate reduction of disc height. Mild broad-based posterior disc-osteophyte complex. Bilateral posterior facet and uncovertebral arthropathy with resultant moderate central canal stenosis, indentation of the ventral spinal cord and moderate right and severe left neural foramina stenosis with impingement of the bilateral traversing nerve process in the left exiting nerve. C5-C6: Severe reduction of disc height, mild broad-based posterior disc-osteophyte complex, bilateral posterior facet and uncovertebral arthropathy with moderate central canal stenosis, indentation of the intraspinal cord, impingement of the bilateral traversing ventral nerve rootlets and mild right neural foramina stenosis MRI T-spine, 03/2023: 1. Limited evaluation without the presence of intravenous contrast. Within this limitation, no signal abnormality in the thoracic spinal cord to suggest demyelinating lesion. 2. Right paracentral disc protrusion at T7-T8. No significant central or neural foraminal stenosis in the thoracic spine. 3. Lobular T2 hyperintense mass in the body of the pancreas. Further evaluation is warranted. MRI of the abdomen with intravenous contrast utilizing a pancreatic protocol is recommended. T2 hyperintense lesion in the kidney can also be assessed at this time though favored to represent a benign cyst vital signs Vital Sign Date Time Temp Pulse Resp B/P (MAP) Pulse Ox O2 Delivery O2 Flow Rate FiO2 02/21/24 19:53 18 Room Air* 0 21 02/21/24 17:04 97.8 101 124/69 (87) 95 97.8 Total Intake and Output 02/20/24 02/20/24 02/21/24 15:00 23:00 07:00 Intake Total 800 ml 600 ml 1050 ml Output Total 350 ml Balance 800 ml 600 ml 700 ml medications Current Medications Medications Dose Ordered Sig/Adeel Route Start Time Stop Time Status Last Admin Dose Admin Levothyroxine Sodium 50 mcg QAM@0600 PO 02/19/24 06:00 02/21/24 06:15 50 MCG Acetaminophen/ Hydrocodone Bitart 1 tab Q4HP PRN PO 02/18/24 21:45 02/21/24 16:04 1 TAB Ondansetron HCl 4 mg Q4HP PRN IV 02/18/24 21:45 Docusate Sodium 100 mg BIDPRN PRN PO 02/18/24 21:45 Morphine Sulfate 2 mg Q4HPRN PRN IV 02/18/24 21:45 02/20/24 10:23 2 MG Ceftriaxone Sodium 50 ml @ 100 mls/hr DAILY@2200 IV 02/19/24 22:00 02/20/24 22:02 100 MLS/HR Nitroglycerin 0.4 mg Q5MINP PRN SL 02/18/24 22:15 Morphine Sulfate 2 mg Q30M PRN IV 02/18/24 22:15 Diagnostic Test (Pha) 1 strip ACHS 02/19/24 07:00 02/21/24 17:06 1 STRIP Insulin Human Regular ACHS SC 02/19/24 07:00 02/21/24 17:32 4 UNITS Dextrose 50 ml UD PRN IV 02/18/24 22:30 Sodium Chloride 1,000 ml @ 100 mls/hr Q10H IV 02/19/24 13:45 02/21/24 18:01 100 MLS/HR Albuterol 2.5 mg Q4HPRN PRN NEB 02/19/24 16:00 02/20/24 09:34 2.5 MG Patient Own Medication 40 mg MWF SC 02/20/24 11:00 Pantoprazole Sodium 40 mg DAILY IV 02/21/24 10:00 02/21/24 11:31 40 MG Linezolid 600 mg BID PO 02/20/24 22:00 02/21/24 11:31 600 MG objective General: the patient is well developed and nourished. In pain MENTAL STATUS: Awake and alert. Oriented to person, place, time and general circumstances. Poor historian SPEECH, LANGUAGE, HIGHER CORTICAL FUNCTION: no aphasia or dysathria. CRANIAL NERVES: Pupils are equal, round and reactive. EOMs full and conjugate. No nystagmus. Facial sensation intact in all three divisions bilaterally. Mandibular strength intact. Facial muscles symmetrical and strength intact. SENSATION: Sensation to touch and pinprick is normal. MOTOR: Normal tone in the upper and lower extremity. Normal muscle bulk. No fasciculations. No abnormal movements or posturing. Muscle strength of the major groups in the upper extremities is 4/5. Muscle strength of the major groups in the lower extremities is 3-4/5. REFLEXES: Deep tendon reflexes are symmetrical. No pathological reflexes. CEREBELLAR/COORDINATION: No ataxia in the arms. GAIT/STATION: deferred laboratory and microbiology Laboratory Tests 02/21/24 05:43 Test 02/21/24 05:43 Range/Units Serum Glucose 204 H 74-106 mg/dL Problem List Multiple sclerosis General weakness Secondary to medical problems Rule out multiple sclerosis exacerbation Abdominal pain, pancreatic mass on MRI T-spine Respiratory failure Assessment/Plan Monitoring Supportive treatment Telemetry MRI abdomen GI specialist on case Copaxone 40 mg subQ 3 times weekly Consider more testing as indicated More recommendation per clinical course This medical document was created using an electronic medical record system with V[employer]xter dictation system. Although this document has been carefully reviewed, there may still be some phonetic and typographical errors. These areas are purely typographical due to imperfections of the software programs, and do not reflect any compromise in the patient's medical care Prognosis poor Dietary Evaluation Review Recommendations by RD: Dietary education by RD Comments: Rresume CCHO-60 with Renal specific-50g protein consideration Expected Outcomes/Goals: Controlled blood glucose, avoid uremic symdromes Plan discussed with: Patient, Other Total Time (mins): 35 ROBE BROOKS MD Feb 21, 2024 21:15
[2024-02-22] VITALS (9 sets, daily range): BP systolic 119–144; BP diastolic 54–73; PULSE 83–94; RESP 16–18; TEMP 97.4–97.9; O2SAT 95–99
[2024-02-22 07:49] LABS: Anion Gap 8 (5-15); Carbon Dioxide 20 mmol/L (20-31); Potassium 4.1 mmol/L (3.5-5.1); Sodium 142 mmol/L (136-145)
[2024-02-22 07:55] LABS: BUN/Creatinine Ratio 41.3 (10.0-20.0)
[2024-02-22 08:00] LABS: Blood Urea Nitrogen 74 mg/dL (9-23); Calcium 8.5 mg/dL (8.7-10.4); Chloride 114 mmol/L (98-107); Glucose 150 mg/dL (74-106)
[2024-02-22 08:11] LABS: Basophils # (auto) 0 10 ^3/uL (0-0.2); Basophils % (auto) 0.2 % (0.0-2.0); Eosinophils # (auto) 0 10 ^3/uL (0-0.8); Eosinophils % (auto) 0.3 % (0.0-7.0); Hematocrit 34.1 % (36.0-46.0); Hemoglobin 11.3 g/dL (12.2-16.2); Lymphocytes # (auto) 0.9 10 ^3/uL (0.4-5.4); Lymphocytes % (auto) 6.5 % (10.0-50.0); Mean Corpuscular Hemoglobin 28.7 pg (28.0-32.0); Mean Corpuscular Hgb Conc. 33.2 g/dL (32.0-36.0); Mean Corpuscular Volume 86.4 fL (80.0-100.0); Monocytes # (auto) 0.7 10 ^3/uL (0-1.3); Neutrophils # (auto) 12.9 10 ^3/uL (1.6-8.6); Platelet Count (auto) 205 10^3/uL (140-450); Red Blood Cells 3.95 10^6/uL (4.0-5.20); Red Cell Distribution Width 14.9 % (11.8-14.3); White Blood Cell 14.7 10^3/uL (4.4-10.8)
--- NOTE | 2024-02-22 09:50 | DVHPN2 ---
Progress Note - Dictate Date Seen: Feb 22, 2024 Medical Necessity Reason Pt with a Central, PICC or Fol: Yes The following are medically ne: Harding Catheter vital signs Vital Sign Date Time Temp Pulse Resp B/P (MAP) Pulse Ox O2 Delivery O2 Flow Rate FiO2 02/22/24 08:43 99 Room Air 0.0 02/22/24 08:43 21 02/22/24 05:00 97.4 87 18 129/65 (86) 97.4 Total Intake and Output 02/21/24 02/21/24 02/22/24 15:00 23:00 07:00 Intake Total 400 ml 630 ml 800 ml Output Total 330 ml 350 ml Balance 400 ml 300 ml 450 ml medications Current Medications Medications Dose Ordered Sig/Adeel Route Start Time Stop Time Status Last Admin Dose Admin Levothyroxine Sodium 50 mcg QAM@0600 PO 02/19/24 06:00 02/22/24 06:00 50 MCG Acetaminophen/ Hydrocodone Bitart 1 tab Q4HP PRN PO 02/18/24 21:45 02/21/24 16:04 1 TAB Ondansetron HCl 4 mg Q4HP PRN IV 02/18/24 21:45 Docusate Sodium 100 mg BIDPRN PRN PO 02/18/24 21:45 Morphine Sulfate 2 mg Q4HPRN PRN IV 02/18/24 21:45 02/20/24 10:23 2 MG Ceftriaxone Sodium 50 ml @ 100 mls/hr DAILY@2200 IV 02/19/24 22:00 02/21/24 21:06 100 MLS/HR Nitroglycerin 0.4 mg Q5MINP PRN SL 02/18/24 22:15 Morphine Sulfate 2 mg Q30M PRN IV 02/18/24 22:15 Diagnostic Test (Pha) 1 strip ACHS 02/19/24 07:00 02/22/24 06:00 1 STRIP Insulin Human Regular ACHS SC 02/19/24 07:00 02/22/24 06:00 3 UNITS Dextrose 50 ml UD PRN IV 02/18/24 22:30 Sodium Chloride 1,000 ml @ 100 mls/hr Q10H IV 02/19/24 13:45 02/21/24 18:01 100 MLS/HR Albuterol 2.5 mg Q4HPRN PRN NEB 02/19/24 16:00 02/20/24 09:34 2.5 MG Patient Own Medication 40 mg MWF SC 02/20/24 11:00 Pantoprazole Sodium 40 mg DAILY IV 02/21/24 10:00 02/22/24 09:21 40 MG Linezolid 600 mg BID PO 02/20/24 22:00 02/22/24 09:22 600 MG objective GENERAL:Abnormal, MSK:Abnormal, NEURO:Abnormal laboratory and microbiology Laboratory Tests 02/22/24 07:12 Test 02/22/24 07:12 Range/Units Serum Glucose 150 H 74-106 mg/dL Assessment/Plan MARIANA on CKD stage IIIa ( 2022 labs) hemodynamically mediated prerenal Sepsis urinary tract infection; ECOLI Multiple sclerosis Lactic acidosis History of hypothyroidism Proteinuria:1.6 g/day Plan/recommendation Blood pressure is little better today -continue IV fluid normal saline 100 mL/hour -continue to monitor kidney function, strict I&O Urine culture showing E coli Dietary Evaluation Review Recommendations by RD: Dietary education by RD Comments: Rresume CCHO-60 with Renal specific-50g protein consideration Expected Outcomes/Goals: Controlled blood glucose, avoid uremic symdromes Plan discussed with: Patient YADIEL POSEY MD Feb 22, 2024 09:50
[2024-02-22] MEDS ORDERED: PATIENTS OWN MEDICATION SC SCH (10:00)
--- NOTE | 2024-02-22 11:14 | DVHPN2 ---
Subjective The patient is seen and examined at bedside. The patient looked very tired. She said she in pain today. Reviewed: Care Plan, H&P, Labs, Medications, Previous Orders, Radiology Changes from previous H/P or p: No Changes Eyes: No Pain, No Vision change, No Conjunctivae inflammation, No Eyelid inflammation, No Other, No Redness ENT: No Ear pain, No Ear discharge, No Nose pain, No Nose discharge, No Nose congestion, No Mouth pain, No Mouth swelling, No Throat pain, No Throat swelling, No Other Cardiovascular: No Chest Pain, No Palpitations, No Orthopnea, No Paroxysmal Noc. Dyspnea, No Edema, No Lt Headedness, No Other Respiratory: No Cough, No Dry, No Shortness of breath, No SOB with excertion, No Wheezing, No Hemoptysis, No Pleuritic Pain, No Sputum, No Other Gastrointestinal: No Nausea, No Vomiting, No Abdominal Pain, No Diarrhea, No Constipation, No Melena, No Hematochezia, No Other Genitourinary: No Dysuria, No Frequency, No Incontinence, No Hematuria, No Retention, No Other Musculoskeletal: No other, No neck pain, No shoulder pain, No arm pain, No back pain, No hand pain, No leg pain, No foot pain Skin: No Rash, No Lesions, No Jaundice, No Bruising, No Other Objective Vitals Vital Signs Date Time Temp Pulse Resp B/P (MAP) Pulse Ox O2 Delivery O2 Flow Rate FiO2 02/22/24 09:00 97.5 83 18 121/62 (81) 96 97.5 02/22/24 08:43 Room Air 0.0 02/22/24 08:43 21 Intake/Output Intake and Output 02/22/24 07:00 Intake Total 1830 ml Output Total 680 ml Balance 1150 ml Intake Oral 1380 ml IV Total 450 ml Output Urine Total 680 ml # Bowel Movements 1 General Appearance: Alert, Oriented X3, Cooperative, No acute distress, Other (lethargic, and unable to have conversation) HEENT: Atraumatic, PERRLA, EOMI, Mucous membr. moist/pink Neck: Supple Lungs: Clear to auscultation, Normal air movement Cardiovascular: Regular rate, Normal S1, Normal S2, No murmurs Abdomen: Normal bowel sounds, Soft, No tenderness Neuro: Other (moving extremities) Medications Current Medications Medications Dose Ordered Sig/Adeel Route Start Time Stop Time Status Last Admin Dose Admin Levothyroxine Sodium 50 mcg QAM@0600 PO 02/19/24 06:00 02/22/24 06:00 50 MCG Acetaminophen/ Hydrocodone Bitart 1 tab Q4HP PRN PO 02/18/24 21:45 02/21/24 16:04 1 TAB Ondansetron HCl 4 mg Q4HP PRN IV 02/18/24 21:45 Docusate Sodium 100 mg BIDPRN PRN PO 02/18/24 21:45 Morphine Sulfate 2 mg Q4HPRN PRN IV 02/18/24 21:45 02/20/24 10:23 2 MG Ceftriaxone Sodium 50 ml @ 100 mls/hr DAILY@2200 IV 02/19/24 22:00 02/21/24 21:06 100 MLS/HR Nitroglycerin 0.4 mg Q5MINP PRN SL 02/18/24 22:15 Morphine Sulfate 2 mg Q30M PRN IV 02/18/24 22:15 Diagnostic Test (Pha) 1 strip ACHS 02/19/24 07:00 02/22/24 06:00 1 STRIP Insulin Human Regular ACHS SC 02/19/24 07:00 02/22/24 06:00 3 UNITS Dextrose 50 ml UD PRN IV 02/18/24 22:30 Sodium Chloride 1,000 ml @ 100 mls/hr Q10H IV 02/19/24 13:45 02/21/24 18:01 100 MLS/HR Albuterol 2.5 mg Q4HPRN PRN NEB 02/19/24 16:00 02/20/24 09:34 2.5 MG Patient Own Medication 40 mg MWF SC 02/20/24 11:00 Pantoprazole Sodium 40 mg DAILY IV 02/21/24 10:00 02/22/24 09:21 40 MG Linezolid 600 mg BID PO 02/20/24 22:00 02/22/24 09:22 600 MG Laboratory Results Laboratory Tests 02/22/24 07:12 Chemistry Test 02/22/24 07:12 Calcium Level 8.5 mg/dL (8.7-10.4) L Urinalysis Test 02/19/24 18:46 Urine Color Light-orange (Yellow) Urine Clarity Ex.turbid (Clear) Urine pH 5.5 (5.0-9.0) Urine Specific [place] 1.021 (1.001-1.035) Urine Protein 2+ (Negative) H Urine Ketones 1+ (Negative) H Urine Blood 2+ /uL (Negative) H Urine Nitrite Negative (Negative) Urine Bilirubin Negative (Negative) Urine Urobilinogen Normal mg/dL (Negative) Urine Leukocyte Esterase Negative /uL (Negative) Urine RBC 6 /hpf (0 - 4) Urine WBC 6 /hpf (0 - 5) Urine Squamous Epithelial Cells Many /hpf (<5) Urine Bacteria Few /hpf (None Seen) H Urine Yeast (Budding) Few /hpf (None Seen) Urine Creatinine 155.61 mg/dL (30.0-125.0) H Urine Protein/Creatinine Ratio 1.63 Urine Sodium 28 mmol/L (40-220) L Urine Glucose Normal mg/dL (Normal) Urine Total Protein 252.9 mg/dL (1-14) H Microbiology Microbiology Date/Time Source Procedure Growth Status 02/19/24 18:46 Voided Urine Urine Culture - Final Escherichia coli Complete 02/19/24 03:22 Blood Blood Culture - Preliminary NO GROWTH AFTER 72 HOURS OF INCUBATION. Resulted Labs and/or images reviewed: Labs reviewed by me Assessment/Plan Assessment/Plan #acute kidney injury due to acute tubular necrosis no baseline to compare- IVF, Nephro Cx #acute metabolic encephalopathy due to electrolyte abnormalities and uremia- Improving #MS history, we will monitor #Sepsis present on admission, tachycardic, elevated WBC, source possible UTI- Zyvox, Rocephin This medical document was created using an electronic medical record system with M*M [employer] direct computerized dictation system. Although this document has been carefully reviewed, there may still be some phonetic and typographical errors. These areas are purely typographical due to imperfections of the software programs, and do not reflect any compromise in the patient's medical care. Plan discussed with: Patient Date of Service: Feb 22, 2024 Billing Provider: DICK BUSTILLO MD Common Visit Codes: [id number] INP/OBS CARE(HIGH) DICK BUSTILLO MD Feb 22, 2024 11:14
--- NOTE | 2024-02-22 16:39 | DVHPN2 ---
Progress Note - Dictate Date Seen: Feb 22, 2024 Medical Necessity Reason Pt with a Central, PICC or Fol: Yes The following are medically ne: Harding Catheter Subjective No new complaints Patient passed swallow eval and is able to take pureed diet CA 19-[address] abdomen suggestive of possible pancreatic mass in the proximal body of the pancreas vital signs Vital Sign Date Time Temp Pulse Resp B/P (MAP) Pulse Ox O2 Delivery O2 Flow Rate FiO2 02/22/24 13:00 97.4 86 16 125/54 (77) 97 97.4 02/22/24 08:43 Room Air 0.0 02/22/24 08:43 21 Total Intake and Output 02/21/24 02/21/24 02/22/24 15:00 23:00 07:00 Intake Total 400 ml 630 ml 800 ml Output Total 330 ml 350 ml Balance 400 ml 300 ml 450 ml medications Current Medications Medications Dose Ordered Sig/Adeel Route Start Time Stop Time Status Last Admin Dose Admin Levothyroxine Sodium 50 mcg QAM@0600 PO 02/19/24 06:00 02/22/24 06:00 50 MCG Acetaminophen/ Hydrocodone Bitart 1 tab Q4HP PRN PO 02/18/24 21:45 02/21/24 16:04 1 TAB Ondansetron HCl 4 mg Q4HP PRN IV 02/18/24 21:45 Docusate Sodium 100 mg BIDPRN PRN PO 02/18/24 21:45 Morphine Sulfate 2 mg Q4HPRN PRN IV 02/18/24 21:45 02/20/24 10:23 2 MG Ceftriaxone Sodium 50 ml @ 100 mls/hr DAILY@2200 IV 02/19/24 22:00 02/21/24 21:06 100 MLS/HR Nitroglycerin 0.4 mg Q5MINP PRN SL 02/18/24 22:15 Morphine Sulfate 2 mg Q30M PRN IV 02/18/24 22:15 Diagnostic Test (Pha) 1 strip ACHS 02/19/24 07:00 02/22/24 11:20 1 STRIP Insulin Human Regular ACHS SC 02/19/24 07:00 02/22/24 11:24 4 UNITS Dextrose 50 ml UD PRN IV 02/18/24 22:30 Sodium Chloride 1,000 ml @ 100 mls/hr Q10H IV 02/19/24 13:45 02/22/24 11:26 100 MLS/HR Albuterol 2.5 mg Q4HPRN PRN NEB 02/19/24 16:00 02/20/24 09:34 2.5 MG Patient Own Medication 40 mg MWF SC 02/20/24 11:00 Pantoprazole Sodium 40 mg DAILY IV 02/21/24 10:00 02/22/24 09:21 40 MG Linezolid 600 mg BID PO 02/20/24 22:00 02/22/24 09:22 600 MG objective General: Lethargic poor historian unable to have conversation Chest: lung burns clear to auscultation Heart: RRR, no murmur Abdomen: non-distended, nontender laboratory and microbiology Laboratory Tests 02/22/24 07:12 Test 02/22/24 07:12 Range/Units Serum Glucose 150 H 74-106 mg/dL Problems(with codes): (1) Abnormal finding on GI tract imaging (2) Exacerbation of multiple sclerosis (3) Elevated lactic acid level (4) Acute kidney injury Prognosis Plan Discharge planning is in progress possibly to the [facility] MRI of the pancreas with pancreas protocol CA 19-9 was normal, check lipase level in a.m. If the above is nondiagnostic patient may need an outpatient elective endoscopic ultrasound with FNA in the future I will follow up patient with you Dietary Evaluation Review Recommendations by RD: Dietary education by OVIDIO Comments: Rresume CCHO-60 with Renal specific-50g protein consideration Expected Outcomes/Goals: Controlled blood glucose, avoid uremic symdromes Plan discussed with: Patient ROSANNA GATES MD Feb 22, 2024 16:39
--- NOTE | 2024-02-22 21:05 | DVHPN2 ---
Progress Note - Dictate Date Seen: Feb 22, 2024 Medical Necessity Reason Pt with a Central, PICC or Fol: Yes The following are medically ne: Harding Catheter Subjective Ms. Washington is a right-handed female with a history of hypertension, hypothyroidism, osteoporosis, the patient was came to the [facility] on 02/18/2024 with a chief company of chills, fever, coughing, sharp breath, she was history of multiple sclerosis I have seen and examined the patient, I have discussed with her nurse, she looks tired, but he is oriented x3. She work with her physical therapist but was only able to walk minimally. No new complaints Urinalysis, 02/19/2024: WBC: 6, urine leukocyte esterase: Negative WBC/HB/PLT/MCV, 02/19/2024: 743/13.3/218/86.9 BUN/CR, 02/19/2024: 42/2.4, 02/20/24: /2.6 HCO3, 02/21/2024: 18 Liver function tests, 02/19/2024: Unremarkable Lactic acid, 02/19/2020 4:3.3 Chest x-ray, 02/20/2024: No acute cardiopulmonary disease CT abdomen/pelvis, 02/20/2024: 1. Nonspecific 2.8 x 2.9 cm hypodense mass in the proximal body of the pancreas. Further evaluation with MRI abdomen with contrast is recommended. 2. Sigmoid diverticulosis. 3. Opacities in the bilateral posterior lung bases may represent atelectasis versus airspace disease. Clinical correlation is recommended MRI head, 04/14/2023: There are periventricular and T2/FLAIR hyperintense foci with periventricular T1/FLAIR hypointense, T2 hyperintense lesions with surrounding T2/FLAIR hyperintensity and minimal involvement of the right body of the corpus callosum. Findings are suggestive of demyelinating lesions with the T1 hypointense lesions representing chronic lesions. There is no diffusion restriction to suggest an active process MRI C-spine, 04/14/2023: Abnormal cord signal in the posterior-central portion of the cervical spinal cord at the level of C7 vertebral body that may represent demyelination plaque or myelomalacia. No evidence of cord edema. Straightening of normal lordosis, multilevel degenerative disc disease and posterior facet arthropathy with evidence of nerve impingement at C4-C5 and C5-C6 levels. C4-C5: Moderate reduction of disc height. Mild broad-based posterior disc-osteophyte complex. Bilateral posterior facet and uncovertebral arthropathy with resultant moderate central canal stenosis, indentation of the ventral spinal cord and moderate right and severe left neural foramina stenosis with impingement of the bilateral traversing nerve process in the left exiting nerve. C5-C6: Severe reduction of disc height, mild broad-based posterior disc-osteophyte complex, bilateral posterior facet and uncovertebral arthropathy with moderate central canal stenosis, indentation of the intraspinal cord, impingement of the bilateral traversing ventral nerve rootlets and mild right neural foramina stenosis MRI T-spine, 03/2023: 1. Limited evaluation without the presence of intravenous contrast. Within this limitation, no signal abnormality in the thoracic spinal cord to suggest demyelinating lesion. 2. Right paracentral disc protrusion at T7-T8. No significant central or neural foraminal stenosis in the thoracic spine. 3. Lobular T2 hyperintense mass in the body of the pancreas. Further evaluation is warranted. MRI of the abdomen with intravenous contrast utilizing a pancreatic protocol is recommended. T2 hyperintense lesion in the kidney can also be assessed at this time though favored to represent a benign cyst vital signs Vital Sign Date Time Temp Pulse Resp B/P (MAP) Pulse Ox O2 Delivery O2 Flow Rate FiO2 02/22/24 17:00 97.9 90 16 129/67 (87) 95 97.9 02/22/24 10:13 Room Air* 0 21 Total Intake and Output 02/21/24 02/21/24 02/22/24 15:00 23:00 07:00 Intake Total 400 ml 630 ml 800 ml Output Total 330 ml 350 ml Balance 400 ml 300 ml 450 ml medications Current Medications Medications Dose Ordered Sig/Adeel Route Start Time Stop Time Status Last Admin Dose Admin Levothyroxine Sodium 50 mcg QAM@0600 PO 02/19/24 06:00 02/22/24 06:00 50 MCG Acetaminophen/ Hydrocodone Bitart 1 tab Q4HP PRN PO 02/18/24 21:45 02/21/24 16:04 1 TAB Ondansetron HCl 4 mg Q4HP PRN IV 02/18/24 21:45 Docusate Sodium 100 mg BIDPRN PRN PO 02/18/24 21:45 Morphine Sulfate 2 mg Q4HPRN PRN IV 02/18/24 21:45 02/20/24 10:23 2 MG Ceftriaxone Sodium 50 ml @ 100 mls/hr DAILY@2200 IV 02/19/24 22:00 02/21/24 21:06 100 MLS/HR Nitroglycerin 0.4 mg Q5MINP PRN SL 02/18/24 22:15 Morphine Sulfate 2 mg Q30M PRN IV 02/18/24 22:15 Diagnostic Test (Pha) 1 strip ACHS 02/19/24 07:00 02/22/24 17:00 1 STRIP Insulin Human Regular ACHS SC 02/19/24 07:00 02/22/24 17:00 3 UNITS Dextrose 50 ml UD PRN IV 02/18/24 22:30 Sodium Chloride 1,000 ml @ 100 mls/hr Q10H IV 02/19/24 13:45 02/22/24 11:26 100 MLS/HR Albuterol 2.5 mg Q4HPRN PRN NEB 02/19/24 16:00 02/20/24 09:34 2.5 MG Patient Own Medication 40 mg MWF SC 02/20/24 11:00 Pantoprazole Sodium 40 mg DAILY IV 02/21/24 10:00 02/22/24 09:21 40 MG Linezolid 600 mg BID PO 02/20/24 22:00 02/22/24 09:22 600 MG objective General: the patient is well developed and nourished. In pain MENTAL STATUS: Awake and alert. Oriented to person, place, time and general circumstances. Poor historian SPEECH, LANGUAGE, HIGHER CORTICAL FUNCTION: no aphasia or dysathria. CRANIAL NERVES: Pupils are equal, round and reactive. EOMs full and conjugate. No nystagmus. Facial sensation intact in all three divisions bilaterally. Mandibular strength intact. Facial muscles symmetrical and strength intact. SENSATION: Sensation to touch and pinprick is normal. MOTOR: Normal tone in the upper and lower extremity. Normal muscle bulk. No fasciculations. No abnormal movements or posturing. Muscle strength of the major groups in the upper extremities is 4/5. Muscle strength of the major groups in the lower extremities is 3-4/5. REFLEXES: Deep tendon reflexes are symmetrical. No pathological reflexes. CEREBELLAR/COORDINATION: No ataxia in the arms. GAIT/STATION: deferred laboratory and microbiology Laboratory Tests 02/22/24 07:12 Test 02/22/24 07:12 Range/Units Serum Glucose 150 H 74-106 mg/dL Problem List Multiple sclerosis General weakness Secondary to medical problems Rule out multiple sclerosis exacerbation Abdominal pain, pancreatic mass on MRI T-spine Respiratory failure Assessment/Plan Monitoring Supportive treatment Telemetry MRI abdomen GI specialist on case Copaxone 40 mg subQ 3 times weekly Consider more testing as indicated More recommendation per clinical course This medical document was created using an electronic medical record system with [employer] dictation system. Although this document has been carefully reviewed, there may still be some phonetic and typographical errors. These areas are purely typographical due to imperfections of the software programs, and do not reflect any compromise in the patient's medical care Prognosis poor Dietary Evaluation Review Recommendations by RD: Dietary education by RD Comments: Rresume CCHO-60 with Renal specific-50g protein consideration Expected Outcomes/Goals: Controlled blood glucose, avoid uremic symdromes Plan discussed with: Other ROBE BROOKS MD Feb 22, 2024 21:05
[2024-02-23 01:00] VITALS: BP 151/75; PULSE 91; RESP 16; TEMP 98.2; O2SAT 95
[2024-02-23 05:00] VITALS: BP 154/67; PULSE 96; RESP 18; TEMP 97.9; O2SAT 95
[2024-02-23 06:34] LABS: Anion Gap 12 (5-15); Potassium 4.2 mmol/L (3.5-5.1); Sodium 144 mmol/L (136-145)
[2024-02-23 06:36] LABS: Calcium 8.7 mg/dL (8.7-10.4); Carbon Dioxide 17 mmol/L (20-31); Chloride 115 mmol/L (98-107)
[2024-02-23 06:40] LABS: BUN/Creatinine Ratio 44.4 (10.0-20.0); Blood Urea Nitrogen 59 mg/dL (9-23); Glucose 112 mg/dL (74-106)
[2024-02-23 06:54] LABS: Lipase 134 U/L (12-53)
[2024-02-23 09:00] VITALS: BP_SYST 143; BP_SYST 88; BP_DIAS 56; BP_DIAS 71; PULSE 55; PULSE 87; RESP 16; RESP 18; TEMP 97.3; TEMP 97.5; O2SAT 97
[2024-02-23 10:05] VITALS: O2SAT 97
--- NOTE | 2024-02-23 10:29 | DVHDS2 ---
Discharge Summary Date of Admission Feb 18, 2024 at 22:14 Date of Discharge: Feb 23, 2024 Admitting Diagnosis #acute kidney injury due to acute tubular necrosis no baseline to compare #acute metabolic encephalopathy due to electrolyte abnormalities and uremia- #MS history #Sepsis present on admission, tachycardic, elevated WBC, source possible UTI- Labs/Diagnostic Data: Laboratory Results Test 02/23/24 06:29 02/23/24 04:41 02/22/24 07:12 02/21/24 05:43 POC Glucose 109 mg/dl (70-106) Sodium Level 144 mmol/L (136-145) Potassium Level 4.2 mmol/L (3.5-5.1) Chloride Level 115 mmol/L (98-107) Carbon Dioxide Level 17 mmol/L (20-31) Anion Gap 12 (5-15) Blood Urea Nitrogen 59 mg/dL (9-23) Creatinine 1.33 mg/dL (0.550-1.02) Glomerular Filtration Rate Calc 41 mL/min (>90) BUN/Creatinine Ratio 44.4 (10.0-20.0) Serum Glucose 112 mg/dL (74-106) Calcium Level 8.7 mg/dL (8.7-10.4) Lipase 134 U/L (12-53) White Blood Count 14.7 10^3/uL (4.4-10.8) Red Blood Count 3.95 10^6/uL (4.0-5.20) Hemoglobin 11.3 g/dL (12.2-16.2) Hematocrit 34.1 % (36.0-46.0) Mean Corpuscular Volume 86.4 fL (80.0-100.0) Mean Corpuscular Hemoglobin 28.7 pg (28.0-32.0) Mean Corpuscular Hemoglobin Concent 33.2 g/dL (32.0-36.0) Red Cell Distribution Width 14.9 % (11.8-14.3) Platelet Count 205 10^3/uL (140-450) Mean Platelet Volume 8.0 fL (6.9-10.8) Neutrophils (%) (Auto) 88.0 % (37.0-80.0) Lymphocytes (%) (Auto) 6.5 % (10.0-50.0) Monocytes (%) (Auto) 5.0 % (0.0-12.0) Eosinophils (%) (Auto) 0.3 % (0.0-7.0) Basophils (%) (Auto) 0.2 % (0.0-2.0) Neutrophils # (Auto) 12.9 10 ^3/uL (1.6-8.6) Lymphocytes # (Auto) 0.9 10 ^3/uL (0.4-5.4) Monocytes # (Auto) 0.7 10 ^3/uL (0-1.3) Eosinophils # (Auto) 0 10 ^3/uL (0-0.8) Basophils # (Auto) 0 10 ^3/uL (0-0.2) Nucleated Red Blood Cells 0.0 % Differential Total Cells Counted 100.0 (100) Neutrophils % (Manual) 82 (37.0-80.0) Band Neutrophils % (Manual) 9 Lymphocytes % (Manual) 3 (10.0-50.0) Monocytes % (Manual) 6 (0-12) Eosinophils % (Manual) 0 (0-7) Basophils % (Manual) 0 (0.0-2.0) Metamyelocytes % (manual) 0 Myelocytes % (Manual) 0 Promyelocytes % (Manual) 0 Blast Cells % (Manual) 0 Reactive Lymphocytes 0 Platelet Estimate Adequate Test 02/20/24 11:48 02/20/24 06:27 02/19/24 19:41 02/19/24 18:46 Lactic Acid Level 1.6 mmol/L (0.4-2.0) Magnesium Level 1.9 mg/dL (1.6-2.6) Total Bilirubin 0.4 mg/dL (0.2-1.0) Aspartate Amino Transferase (AST) 22 U/L (13-40) Alanine Aminotransferase (ALT) 20 U/L (7-40) Alkaline Phosphatase 86 U/L (46-116) Total Protein 5.5 g/dL (5.7-8.2) Albumin 3.1 g/dL (3.2-4.8) CA 19-9 Antigen 5 U/mL (0-35) Random Vancomycin Level < 3.0 ug/mL (5-10) Urine Color Light-orange (Yellow) Urine Clarity Ex.turbid (Clear) Urine pH 5.5 (5.0-9.0) Urine Specific [place] 1.021 (1.001-1.035) Urine Protein 2+ (Negative) Urine Ketones 1+ (Negative) Urine Blood 2+ /uL (Negative) Urine Nitrite Negative (Negative) Urine Bilirubin Negative (Negative) Urine Urobilinogen Normal mg/dL (Negative) Urine Leukocyte Esterase Negative /uL (Negative) Urine RBC 6 /hpf (0 - 4) Urine WBC 6 /hpf (0 - 5) Urine Squamous Epithelial Cells Many /hpf (<5) Urine Bacteria Few /hpf (None Seen) Urine Yeast (Budding) Few /hpf (None Seen) Urine Creatinine 155.61 mg/dL (30.0-125.0) Urine Protein/Creatinine Ratio 1.63 Urine Sodium 28 mmol/L (40-220) Urine Glucose Normal mg/dL (Normal) Urine Total Protein 252.9 mg/dL (1-14) Test 02/19/24 00:10 02/18/24 21:00 02/18/24 20:53 Troponin I High Sensitivity 11 ng/L (</=34) Influenza Type A Antigen Negative (Negative) Influenza Type B Antigen Negative (Negative) SARS-CoV-2 Antigen (Rapid) Negative (NEGATIVE) B-Type Natriuretic Peptide 44.78 pg/mL (0-100) Thyroid Stimulating Hormone (TSH) 1.32 uIU/mL (0.55-4.78) Other Laboratory Tests 02/23/24 04:41 02/22/24 07:12 Brief Hx & Hospital Course: This is a 78 years old female with past medical history of hypothyroidism, TIA, multiple sclerosis, prediabetes come to emergency department because of severe shortness for breath with cough, congestion, generalized weakness, dizzy, fever, sore throat, nausea. Patient was admitted. The patient was treated with IV antibiotic vancomycin and subsequently switched to Zyvox. The patient doing better. Blood culture remained negative. Urine culture showed E coli sensitive to the antibiotic. The patient will be discharged [facility] today for her deconditioning and physical therapy. Physical exam: HEENT: Normocephalic atraumatic pupils equal react to light and accommodation. Extraocular muscles intact, conjunctiva pink, oropharynx moist, no thrush, no exudate. Lymphatic: No lymphadenopathy Cardiovascular exam: S1, S2 was heard. No murmurs, rubs, gallops Lung: Clear on auscultation bilaterally, no wheeze, rale, rhonchi. GI: Abdominal soft, nondistended, nontenderness, positive bowel sounds. Extremity: No crepitus, cyanosis, edema. Pedal pulses present bilateral. Full range of motion. Skin: Normal turgor, no rash. Psych: Alert, oriented x3. Neurology: No focal deficits, cranial nerve II to XII grossly intact. This medical document was created using an electronic medical record system with [employer] direct computerized dictation system. Although this document has been carefully reviewed, there may still be some phonetic and typographical errors. These areas are purely typographical due to imperfections of the software programs, and do not reflect any compromise in the patient's medical care. Condition at Discharge: Stable Final Diagnosis/Problems List #acute kidney injury due to acute tubular necrosis no baseline to compare #acute metabolic encephalopathy due to electrolyte abnormalities and uremia- #MS history #Sepsis present on admission, tachycardic, elevated WBC, source possible UTI- Discharge Disposition: Senior Living Facility Discharge Instruct/Medications Diet: Cardiac 2g Na,low cholest Activity: No Restrictions, As Tolerated Follow Up/Referral: pcp 1-2 weeks Medications: see med list Discharge Statement: "Patient was advised to return to the ER or call 911 if any headaches, dizziness, shortness of breath, chest pain, abdominal pain, bleeding, fevers, or worsening of medical condition. Patient was counseled about treatment plan, medications, possible side effects, patientverbalized understanding. All questions were answered to the best of my ability. This discharge took greater then 30 minutes in planning, reviewing documentation, counseling the patient, and discussing with other team members." ASSESSMENT ASSESSMENT Assessment MS Date of Service: Feb 23, 2024 Billing Provider: DICK BUSTILLO MD Common Visit Codes: 16369-XLJ/OBS DISCH DAY >30min DICK BUSTILLO MD Feb 23, 2024 10:29
[2024-02-23 13:00] VITALS: BP 146/67; PULSE 84; RESP 18; TEMP 97.5; O2SAT 97
--- NOTE | 2024-02-23 13:02 | DVHPN2 ---
Progress Note - Dictate Date Seen: Feb 23, 2024 Medical Necessity Reason Pt with a Central, PICC or Fol: Yes The following are medically ne: Harding Catheter vital signs Vital Sign Date Time Temp Pulse Resp B/P (MAP) Pulse Ox O2 Delivery O2 Flow Rate FiO2 02/23/24 09:00 97.3 87 16 143/71 (95) 97 97.3 02/23/24 08:05 Room Air* 0 21 Total Intake and Output 02/22/24 02/22/24 02/23/24 15:00 23:00 07:00 Intake Total 1100 ml 250 ml Output Total 400 ml 750 ml Balance 700 ml -500 ml medications Current Medications Medications Dose Ordered Sig/Adeel Route Start Time Stop Time Status Last Admin Dose Admin Levothyroxine Sodium 50 mcg QAM@0600 PO 02/19/24 06:00 02/23/24 06:35 50 MCG Acetaminophen/ Hydrocodone Bitart 1 tab Q4HP PRN PO 02/18/24 21:45 02/21/24 16:04 1 TAB Ondansetron HCl 4 mg Q4HP PRN IV 02/18/24 21:45 Docusate Sodium 100 mg BIDPRN PRN PO 02/18/24 21:45 Morphine Sulfate 2 mg Q4HPRN PRN IV 02/18/24 21:45 02/20/24 10:23 2 MG Ceftriaxone Sodium 50 ml @ 100 mls/hr DAILY@2200 IV 02/19/24 22:00 02/22/24 21:23 100 MLS/HR Nitroglycerin 0.4 mg Q5MINP PRN SL 02/18/24 22:15 Morphine Sulfate 2 mg Q30M PRN IV 02/18/24 22:15 Diagnostic Test (Pha) 1 strip ACHS 02/19/24 07:00 02/23/24 10:29 1 STRIP Insulin Human Regular ACHS SC 02/19/24 07:00 02/22/24 17:00 3 UNITS Dextrose 50 ml UD PRN IV 02/18/24 22:30 Sodium Chloride 1,000 ml @ 100 mls/hr Q10H IV 02/19/24 13:45 02/22/24 21:24 100 MLS/HR Patient Own Medication 40 mg MWF SC 02/20/24 11:00 Pantoprazole Sodium 40 mg DAILY IV 02/21/24 10:00 02/23/24 09:09 40 MG Linezolid 600 mg BID PO 02/20/24 22:00 02/23/24 09:09 600 MG objective GENERAL:Abnormal, MSK:Abnormal, NEURO:Abnormal laboratory and microbiology Laboratory Tests 02/23/24 04:41 02/22/24 07:12 Test 02/23/24 04:41 Range/Units Serum Glucose 112 H 74-106 mg/dL Assessment/Plan MARIANA on CKD stage IIIa ( 2022 labs) hemodynamically mediated prerenal Sepsis urinary tract infection; ECOLI Multiple sclerosis Lactic acidosis History of hypothyroidism Proteinuria:1.6 g/day Plan/recommendation Fluids -continue to monitor kidney function, strict I&O Urine culture showing E coli MARIANA resolving Dietary Evaluation Review Recommendations by RD: Dietary education by RD Comments: Rresume CCHO-60 with Renal specific-50g protein consideration Expected Outcomes/Goals: Controlled blood glucose, avoid uremic symdromes Plan discussed with: Patient YADIEL POSEY MD Feb 23, 2024 13:02
--- NOTE | 2024-02-23 21:52 | DVHPN2 ---
Progress Note - Dictate Date Seen: Feb 23, 2024 (Late entryPatient seen at 10:00 a.m.) Medical Necessity Reason Pt with a Central, PICC or Fol: Yes The following are medically ne: Harding Catheter Subjective No new complaints Patient passed swallow eval and is able to take pureed diet CA 19-[address] abdomen suggestive of possible pancreatic mass in the proximal body of the pancreas vital signs Vital Sign Date Time Temp Pulse Resp B/P (MAP) Pulse Ox O2 Delivery O2 Flow Rate FiO2 02/23/24 13:00 97.5 84 18 146/67 (93) 97 97.5 02/23/24 10:05 Room Air 0.0 02/23/24 10:05 21 Total Intake and Output 02/22/24 02/22/24 02/23/24 15:00 23:00 07:00 Intake Total 1100 ml 250 ml Output Total 400 ml 750 ml Balance 700 ml -500 ml objective General: Lethargic poor historian unable to have conversation Chest: lung burns clear to auscultation Heart: RRR, no murmur Abdomen: non-distended, nontender laboratory and microbiology Laboratory Tests 02/23/24 04:41 02/22/24 07:12 Test 02/23/24 04:41 Range/Units Serum Glucose 112 H 74-106 mg/dL Problems(with codes): (1) Abnormal finding on GI tract imaging (2) Exacerbation of multiple sclerosis (3) Elevated lactic acid level (4) Febrile illness, acute (5) Acute kidney injury (6) Sepsis, unspecified organism Prognosis Plan Discharge planning is in progress to [facility] We will arrange outpatient MRI or repeat CT of the pancreas Outpatient follow up GI Services for ongoing monitoring of her pancreatic lesion Patient may need outpatient referral to higher level of care for endoscopic ultrasound Prognosis remains guarded I will follow up patient with you Dietary Evaluation Review Recommendations by RD: Dietary education by RD Comments: Rresume CCHO-60 with Renal specific-50g protein consideration Expected Outcomes/Goals: Controlled blood glucose, avoid uremic symdromes Plan discussed with: Patient ROSANNA GATES MD Feb 23, 2024 21:52
== END 2024-02-23 16:15 | DRG 871 ==
LOC: ER 18:55 → OVERFLOW 22:14 → TELE-WESTW 02-19 10:37 → WEST WING 02-22 03:29
PROVIDERS: ADMIT Nurse Practitioner Family; ATTEND Internal Medicine
DX: A41.51 Sepsis due to Escherichia coli [E. coli] (principal); G93.41 Metabolic encephalopathy; N17.0 Acute kidney failure with tubular necrosis; N39.0 Urinary tract infection, site not specified; E87.20 Acidosis, unspecified; G35 Multiple sclerosis; R73.03 Prediabetes; Z20.822 Contact with and (suspected) exposure to COVID-19; I12.9 Hypertensive chronic kidney disease with stage 1 through stage 4 chronic kidney disease, or unspecified chronic kidney disease; T36.8X5A Adverse effect of other systemic antibiotics, initial encounter; E03.9 Hypothyroidism, unspecified; R80.9 Proteinuria, unspecified; K86.9 Disease of pancreas, unspecified; Z86.73 Personal history of transient ischemic attack (TIA), and cerebral infarction without residual deficits; Z83.3 Family history of diabetes mellitus; Z82.49 Family history of ischemic heart disease and other diseases of the circulatory system; Y92.89 Other specified places as the place of occurrence of the external cause
CPT/HCPCS: 36415; 71045; 74176; 76775; 80048; 80053; 80202; 81001; 82565; 82570; 82962; 83605; 83690; 83735; 83880; 84156; 84300; 84443; 84484; 85007; 85025; 85027; 86301; 87040; 87086; 87088; 87186; 87426; 87804; 92610; 94640; 97163; G0378; J1815; J1885; J2470

== ENCOUNTER → 2024-10-08 | Outpatient (CLI) | payer OTHER ==
[~2024-10-08] MED LIST: LEVO50TA7 PO; [UNRECOGNIZED DRUG - CODE] SC
[2024-10-08 13:18] LABS: Hematocrit 43.2 % (36.0-46.0); Hemoglobin 14.4 g/dL (12.2-16.2); Mean Corpuscular Hemoglobin 28.4 pg (28.0-32.0); Mean Corpuscular Volume 85.2 fL (80.0-100.0); Nucleated Red Blood Cells % 0.1 %
[2024-10-08 14:01] LABS: Alanine Aminotransferase 16 U/L (7-40); Albumin 4.5 g/dL (3.2-4.8); Alkaline Phosphatase 76 U/L (46-116); Anion Gap 7 (5-15); BUN/Creatinine Ratio 23.8 (10.0-20.0); Blood Urea Nitrogen 25 mg/dL (9-23); Calcium 10.3 mg/dL (8.7-10.4); Carbon Dioxide 30 mmol/L (20-31); Chloride 106 mmol/L (98-107); Cholesterol 198 mg/dL (< 200); Glucose 116 mg/dL (74-106); Potassium 4.2 mmol/L (3.5-5.1); Sodium 143 mmol/L (136-145); Total Protein 7.0 g/dL (5.7-8.2); Triglycerides 183 mg/dL (< 150)
[2024-10-08 14:02] LABS: Bilirubin, Total 0.5 mg/dL (0.2-1.0); HDL Cholesterol 47 mg/dL (40-59)
[2024-10-08 14:05] LABS: Free T4 (Free Thyroxine) 1.17 ng/dL (0.89-1.76)
[2024-10-09 11:58] LABS: Free T3 2.24 pg/mL (2.3-4.2)
== END | disposition home or self-care (01) ==
LOC: LAB 12:53
PROVIDERS: ATTEND Student in an Organized Health Care Education/Training Program
DX: E78.5 Hyperlipidemia, unspecified (principal); E03.9 Hypothyroidism, unspecified; E55.9 Vitamin D deficiency, unspecified; R73.9 Hyperglycemia, unspecified; R03.0 Elevated blood-pressure reading, without diagnosis of hypertension
CPT/HCPCS: 36415; 80053; 80061; 82306; 83036; 84439; 84443; 84480; 84481; 85025